=== PATIENT | male | born 1955 | race Caucasian/White ===

== ENCOUNTER 2017-02-19 08:16 | Outpatient (CLI) | payer BC ==
--- NOTE | 2017-02-19 10:30 | CT ---
CT CHEST WITH IV CONTRAST: CT ABDOMEN WITH IV AND ORAL CONTRAST: HISTORY: Renal cell carcinoma. Restaging. COMPARISON: 09/28/2016 FINDINGS: The peripheral, wedge-shaped, parenchymal opacity at the lateral aspect of the left upper lobe is un changed in appearance from the prior study. No focal parenchymal mass is evident. No pleural fluid or mediastinal adenopathy. 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 There is resultant narrowing of the lower trachea. A 0.3 cm calculus is present within a nondilated calyx at the superior pole of the left kidney. The right kidney is surgically absent. There are degenerative changes of the lumbar spine. No retrope ritoneal adenopathy is apparent. The pelvis was not imaged. IMPRESSION: 1. Stable CT appearance of the peripheral wedge-shaped infiltrate at the lateral aspect of the left upper lobe. No new lung abnormalities are apparent. 2. Small, nonobstructing left renal calculus. 3. Chronic type findings are stable. POS: [facility]
[2017-02-19] MEDS ORDERED: Iopamidol 370 76% 100 ML VIAL ONE ×2 (17:14→17:15)
== END 2017-02-19 08:17 | disposition home or self-care (01) ==
LOC: CT 08:16
PROVIDERS: ATTEND Internal Medicine Hematology & Oncology
DX: C64.1 Malignant neoplasm of right kidney, except renal pelvis (principal); R91.8 Other nonspecific abnormal finding of lung field; N20.0 Calculus of kidney
CPT/HCPCS: 36415; 71260; 74160; 82565

== ENCOUNTER 2017-02-26 07:50 | Outpatient (CLI) | payer BC ==
[2017-02-26 10:22] LABS: Hematocrit 50.4 % (42.0-52.0); Mean Platelet Volume 7.6 fL (7.4-10.4); Red Blood Cell (RBC) Count 4.58 mill/uL (4.70-6.10)
[2017-02-26 10:25] LABS: Reactive Lymphocytes 4 % (0-10)
[2017-02-26 10:26] LABS: Macrocytosis MODERATE=16-30 cells (100X) (0-5/hpf)
[2017-02-26 10:30] LABS: Anion Gap 15 mmol/L (10-20); BUN (Urea Nitrogen) 11 mg/dL (8.4-25.7); Calc. Creatinine Clearance 0 mL/min (70-130); Calcium 9.3 mg/dL (7.8-10.44); Carbon Dioxide 22 mmol/L (23-31); Chloride 103 mmol/L (98-107); Estimated GFR-MDRD 60
== END 2017-02-26 07:51 | disposition home or self-care (01) ==
LOC: LABBT 07:50
PROVIDERS: ATTEND Surgery
DX: Z01.818 Encounter for other preprocedural examination (principal); K60.3 Anal fistula
CPT/HCPCS: 80048; 85025; 93005; 93010

== ENCOUNTER 2017-05-15 07:13 | Outpatient (CLI) | payer BC ==
--- NOTE | 2017-05-15 09:40 | CT ---
CT OF THE CHEST WITH CONTRAST CT OF THE ABDOMEN WITH CONTRAST: Date: 05/15/17 COMPARISON: 02/19/17. HISTORY: Renal cell carcinoma with lung metastases. TECHNIQUE: 1. Multiple contiguous axial images were obtained in a CT of the chest with contrast. Coronal reform ats were performed. 2. Multiple contiguous axial images were obtained in a CT of the abdomen only with contrast. PO cont rast was administered. Coronal reformats were performed. FINDINGS: CT CHEST; There is a stable peripheral wedge-shaped area of opacity in the left upper lobe measuring 3.8 cm in width. There is a stable small area of nodularity projecting over the left upper lobe measuring less than 4.0 mm in size. This is seen on image 28 of 67. There is a tiny small area of nodularity just be neath the area of parenchymal opacification in the left upper lobe on image 28 of 67. This is less th an 4.0 mm in size and also stable. No new pulmonary nodules are seen. No pneumothorax or pleural effu sions seen. The heart is normal in size. No hilar or mediastinal lymphadenopathy seen. The patient has a right-si ded descending aortic arch. The left subclavian artery has both communication with the more anterior aorta in front of the trachea and there is also an extension from the descending thoracic aorta poste rior to the trachea. This is unchanged. Degenerative changes are seen in the spine. No suspicious osseous lesions are identified. The chest w all soft tissues are unremarkable. CT ABDOMEN: The patient is status post cholecystectomy and right nephrectomy. The liver, left adrenal gland, sple en, and pancreas are unremarkable. There is a tiny, nonobstructing, 1-2 mm, calcification in the left kidney. No abdominal adenopathy is seen. The large and small bowel are unremarkable. Degenerative changes are seen in the spine without suspicious osseous lesions identified. IMPRESSION: 1. Stable tiny upper lobe pulmonary nodules and area of peripheral opacity in the left upper lobe. 2. No evidence of recurrent intra-abdominal disease. 3. Nonobstructing left renal calcification. POS: [facility]
[2017-05-15] MEDS ORDERED: Iopamidol 370 76% 100 ML VIAL ONE (13:59)
== END 2017-05-15 07:14 | disposition home or self-care (01) ==
LOC: CT 07:13
PROVIDERS: ATTEND Internal Medicine Hematology & Oncology
DX: C64.1 Malignant neoplasm of right kidney, except renal pelvis (principal); N28.89 Other specified disorders of kidney and ureter
CPT/HCPCS: 71260; 74160

== ENCOUNTER 2017-06-05 09:33 | Outpatient (CLI) | payer BC ==
--- NOTE | 2017-06-05 14:26 | NM ---
NUCLEAR MEDICINE BONE SCAN: HISTORY: Malignant neoplasm unspecified kidney. COMPARISON: None. FINDINGS: Three-hour delayed bone scan performed after the intravenous administration of 32.4 mCi Technetium 99 m MDP. Normal background skeletal uptake of radiotracer. The left kidney and the urinary bladder is visuali zed. There are 2 focal faint areas of uptake in the posterior calvarium seen on the posterior view. No ot her areas of abnormal increased or decreased radiotracer uptake to suggest metastatic disease. IMPRESSION: Nonspecific 2 focal areas of uptake seen on the posterior view of the calvarium. This may represent calcified meningiomas. Metastatic disease is felt less likely. CT of the brain would be beneficial. POS: [facility]
== END 2017-06-05 09:34 | disposition home or self-care (01) ==
LOC: NM 09:33
PROVIDERS: ATTEND Family Medicine
DX: C78.00 Secondary malignant neoplasm of unspecified lung (principal); C64.9 Malignant neoplasm of unspecified kidney, except renal pelvis; D84.8 Other specified immunodeficiencies; R07.81 Pleurodynia; Z86.19 Personal history of other infectious and parasitic diseases; Z92.21 Personal history of antineoplastic chemotherapy
CPT/HCPCS: 78306; A9503

== ENCOUNTER 2017-09-12 07:30 | Outpatient (CLI) | payer BC ==
--- NOTE | 2017-09-12 10:41 | CT ---
CT CHEST WITH IV CONTRAST: CT ABDOMEN WITH IV AND ORAL CONTRAST: HISTORY: Malignant neoplasm of kidney (except pelvis). COMPARISON: 05/15/2017 FINDINGS: A right-sided aortic arch is again seen. There are vascular calcifications without evidence of aneur ysmal dilatation of the thoracoabdominal aorta. No pleural or pericardial effusions are identified. There are degenerative changes in the thoracolumbar spine. No osteolytic or osteoblastic lesions ar e identified. No evidence of mediastinal, hilar, or axillary mass or lymphadenopathy is seen. No ab dominal lymphadenopathy is noted. The peripheral wedge-shaped area of opacity in the left upper lobe is stable (3.8 cm). The 5 mm nodu le in the right upper lobe is stable. No new pulmonary nodules are seen. The liver, spleen, pancreas, and left adrenal gland are normal. A tiny, nonobstructing calculus in t he left kidney is again seen. No left renal mass is noted. The patient is status post right nephrec jean and cholecystectomy. The small bowel loops are not abnormally dilated. IMPRESSION: Stable exam since 05/15/2017. POS: [facility]
[2017-09-12] MEDS ORDERED: Iopamidol 370 76% 100 ML VIAL ONE (15:00)
== END 2017-09-12 07:31 | disposition home or self-care (01) ==
LOC: CT 07:30
PROVIDERS: ATTEND Internal Medicine Hematology & Oncology
DX: C64.1 Malignant neoplasm of right kidney, except renal pelvis (principal)
CPT/HCPCS: 71260; 74160; 82565

== ENCOUNTER 2018-01-23 07:29 | Outpatient (CLI) | payer BC ==
--- NOTE | 2018-01-23 10:27 | CT ---
CT CHEST WITH CONTRAST; CT ABDOMEN WITH CONTRAST: HISTORY: Renal cell cancer, status post nephrectomy. COMPARISON: 09/12/2017 TECHNIQUE: Multiple contiguous axial images were obtained in a CT of the chest with contrast. Coronal reformats were performed. Multiple contiguous axial images were obtained in a CT of the abdomen with contrast. Contrast was ad ministered p.o. Coronal reformats were performed. The pelvis was not included on this examination. FINDINGS: CHEST: There is a stable wedge shaped area of opacity in the left upper lobe, measuring approximatel y 3.6 cm in size. There is adjacent pleural thickening. The adjacent third and fourth ribs have an altered appearance, and there may be fractures of these ribs in this location. The third rib may hav e slightly had this appearance on the prior examination, but the fourth rib abnormality is new compar ed to the prior examination. There is a stable 5 to 6 mm nodule in the right upper lobe, on image 30 or 69. No new pulmonary nodu les are seen. No pneumothorax or pleural effusion is seen. The heart is normal in size. There is a right-sided aortic arch, which may also have a circumaortic component supplying the left subclavian artery. No hilar or mediastinal lymphadenopathy are present. The chest wall soft tissues are unremarkable. Degenerative changes are seen in the thoracic spine. ABDOMEN: The patient is status post cholecystectomy and right nephrectomy/adrenalectomy. The liver, left adrenal gland, spleen, and pancreas are unremarkable. There is a tiny, 2 mm, nonobstructing ca lcification in the left kidney. The visualized large and small bowel are unremarkable. No abdominal adenopathy is seen. Atheroscler otic calcifications are seen in the aorta. No free air, free fluid, or stranding changes are seen in the abdomen. Degenerative changes are seen in the lumbar spine. No suspicious lytic lesions are identified. The abdominal wall soft tissues are unremarkable. IMPRESSION: 1. There is a stable wedge shaped area of opacity in the left upper lobe. This is nonspecific. How ever, the ribs adjacent to this opacity have undergone changes compared to the prior examination. Th roe could represent rib fractures. Metastases to these ribs are also a possibility, although less li real, given the proximity to one another and the fact that no other lytic lesions are identified in t he skeleton. 2. Circumaortic aortic arch. 3. Nonobstructing left renal calcification. 4. No evidence of intraabdominal recurrent disease. POS: [facility]
[2018-01-23] MEDS ORDERED: Iopamidol 370 76% 100 ML VIAL ONE (14:06)
== END 2018-01-23 07:30 | disposition home or self-care (01) ==
LOC: CT 07:29
PROVIDERS: ATTEND Internal Medicine Hematology & Oncology
DX: C64.1 Malignant neoplasm of right kidney, except renal pelvis (principal); R19.8 Other specified symptoms and signs involving the digestive system and abdomen; N28.89 Other specified disorders of kidney and ureter
CPT/HCPCS: 71260; 74160; 82565

== ENCOUNTER 2018-05-16 07:30 | Outpatient (CLI) | payer BC ==
--- NOTE | 2018-05-16 10:27 | CT ---
CT CHEST WITH CONTRAST: CT ABDOMEN WITH CONTRAST: HISTORY: Renal cancer with lung metastases. Status post right nephrectomy. The patient is undergoing chemoth erapy. Imaging requested to assess for response to therapy. COMPARISON: 01/23/2018, 09/12/2017, 05/15/2017, 02/19/2017 TECHNIQUE: Chest and abdomen CT are performed in the axial plane. Coronal reformatted images are submitted for interpretation. FINDINGS: CHEST: Redemonstration of right-sided aortic arch. There is no mediastinal mass, lymphadenopathy, o r hematoma. Heart size is within normal limits. No pericardial effusion. The thoracic aorta and ab dominal aorta have a normal caliber. No periaortic fat stranding. Central pulmonary arteries are patent. Trachea and central bronchi are patent. Redemonstration of a 0.9 x 0.6 cm nodule in the right upper lobe. There is a pleural-based opacity in the left hemithorax, measuring 1.7 x 3.8 cm. Previously, this opacity measured 3.6 x 1.8 cm. This opacity is demonstrated and stable from exams from 09/13/19 18, 05/15/2017, and 02/19/2017. There is a 2 mm nodule in the posterior aspect of the left upper lob e. Additional areas of scarring are noted in the superior segment of the left lower lobe, adjacent t o the major fissure. There are adjacent rib fractures. No pneumothorax. ABDOMEN: There is heterogeneous attenuation of the liver, likely representing areas of fatty infiltr ation and fatty sparing. No enhancing masses in the liver. The spleen, pancreas, and left adrenal g land are unremarkable. No gastrohepatic, retrocrural, or periportal lymphadenopathy. No mesenteric mass, lymphadenopathy, free air, or free fluid. Symmetric attenuation of the psoas muscles. The stomach, duodenum, and small bowel loops are unremarkable. Previously noted mucosal thickening i n the segment of multiple jejunal loops has resolved. The ileocecal junction is normal. The visuali zed colon has a normal appearance. No lytic or blastic lesion in the osseous structures. IMPRESSION: 1. Redemonstration of lung parenchymal nodules. When compared to the previous examination, nodulari ty has not changed. Stable opacification, pleural-based, in the left hemithorax. 2. No evidence of new metastatic lesions in the chest or abdomen. POS: [facility]
== END 2018-05-16 07:31 | disposition home or self-care (01) ==
LOC: BICCT 07:30
PROVIDERS: ATTEND Internal Medicine Hematology & Oncology
DX: C64.9 Malignant neoplasm of unspecified kidney, except renal pelvis (principal); C78.00 Secondary malignant neoplasm of unspecified lung; R91.8 Other nonspecific abnormal finding of lung field
CPT/HCPCS: 71260; 74160; 82565

== ENCOUNTER 2018-09-25 07:25 | Outpatient (CLI) | payer BC ==
[2018-09-25] MEDS ORDERED: Iopamidol 370 76% 100 ML VIAL ONE (10:42)
--- NOTE | 2018-09-26 09:44 | CT ---
CT of the chest and abdomen with IV contrast INDICATION: History of renal cancer COMPARISON: Comparisons are made with a prior exam dated CT of the thorax dated May 16, [address] the chest and abdomen dated January 23, 2018. FINDINGS: CHEST: LUNGS: The pleural-based mass involving the lateral aspect of the left upper lobe has decreased in si ze now measuring 2.7 x 1.2 x 2.2 cm where previously the mass measured 3.8 x 1.7 x 2.6 cm. The adjacent pleural thickening and minimally displaced left anterolateral third and fourth rib fractures are stable. The pulmonary nodule within the right upper lobe has increased in size now measuring 11.8 x 8 x 10.9 mm. Previously this nodule measured 9.5 x 5.6 x 9.3 mm. There is an additional enlarg ing pulmonary nodule within the left lower lobe adjacent to the left infrahilar structures now measuring 11.7 x 8 mm where previously measured 7 mm x 11.6 mm. No new pulmonary nodule is identified . Mediastinum: No pathologically enlarged lymph node is evident. There is a right-sided aortic arch wit h an aberrant left subclavian artery. Vascular ring surrounding the distal mainstem trachea and esophagus is stable. ABDOMEN: Liver: Diffuse fatty infiltration is stable. The gallbladder is surgically absent. Adrenal glands: Normal left adrenal gland. The right adrenal gland is not visualized and presumably s urgically absent. Pancreas: Normal. Spleen: Normal. Kidneys: The right kidney is surgically absent. No suspicious soft tissue nodularity seen within the right renal bed. The left kidney is normal-appearing. There is a 2.4 mm nonobstructing calculus within the superior pole left kidney which is stable. Retroperitoneum: There are mild vascular calcifications involving all aorta. No pathologically enlarg ed lymph nodes are evident. Osseous structures: There are stable ununited left anterolateral third and fourth rib fractures with adjacent osteopenia suspicious for pathologic fractures. No new suspicious osteolytic or osteoblastic lesion is identified. IMPRESSION: 1. Findings a mixed response to therapy. The large pleural-based mass within the left upper lobe has decreased in size; however, the pulmonary nodules within the right upper lobe and left lower lobe have increased in size. No new pulmonary nodules are demonstrated. 2. Stable ununited left anterolateral third and fourth rib pathologic fractures 3. No evidence of recurrent disease within the abdomen nor evidence of abdominal regional metastatic disease. 4. Diffuse fatty liver Transcribed Date/Time: 09/26/2018 9:44 AM
== END 2018-09-25 07:26 | disposition home or self-care (01) ==
LOC: CT 07:25
PROVIDERS: ATTEND Internal Medicine Hematology & Oncology
DX: C64.9 Malignant neoplasm of unspecified kidney, except renal pelvis (principal); R91.8 Other nonspecific abnormal finding of lung field; K76.0 Fatty (change of) liver, not elsewhere classified; M84.48XK Pathological fracture, other site, subsequent encounter for fracture with nonunion
CPT/HCPCS: 71260; 74160; 82565; Q9967

== ENCOUNTER 2018-12-25 08:19 | Outpatient (CLI) | payer BC ==
--- NOTE | 2018-12-25 12:23 | CT ---
CT CHEST WITH IV CONTRAST CT ABDOMEN WITH IV CONTRAST: Date: 12/25/18 HISTORY: Malignant neoplasm kidney (except pelvis). Secondary polycythemia. Left upper lobe lung nodule. COMPARISON: 09/25/18. FINDINGS: No mediastinal, hilar, or axillary mass or lymphadenopathy seen. No pleural or pericardial effusions are identified. The right-sided aortic arch with an aberrant left subclavian artery is again seen wit h vascular ring surrounding the distal mainstem trachea and esophagus. The pleural based mass in the lateral aspect of the left upper lobe is stable, measuring 2.7 x 1.2 x 2.2 cm. The 12 mm right upper lobe lung nodule and the 8 mm left lower lobe lung nodule are stable. N o new lung nodules are seen. Changes of fatty infiltration of the liver, cholecystectomy, and right nephrectomy are again seen. Th e spleen, pancreas, left adrenal gland, and left kidney are normal. The right adrenal gland is not vi sualized and likely surgically removed. No free air, free fluid, or lymphadenopathy seen in the abdomen. There are degenerative changes in the spine. No osteolytic or osteoblastic lesions are identified. Ti ny calculus in the left kidney is stable. IMPRESSION: Stable exam. POS: [facility]
== END 2018-12-25 08:20 | disposition home or self-care (01) ==
LOC: BICCT 08:19
PROVIDERS: ATTEND Internal Medicine Hematology & Oncology
DX: C64.1 Malignant neoplasm of right kidney, except renal pelvis (principal); R91.1 Solitary pulmonary nodule; D75.1 Secondary polycythemia
CPT/HCPCS: 71260; 74160; 82565

== ENCOUNTER 2019-03-26 08:40 | Emergency (ER) | payer BC ==
[2019-03-26] MEDS ORDERED: Lidocaine 1% (PF) 30 ML VIAL ONE (08:51)
--- NOTE | 2019-03-26 09:28 | RAD ---
XR Hand Lt 3 View STANDARD History: Pain Comparison: None. Findings: No acute fracture or malalignment. Soft tissues are unremarkable. Impression: No acute fracture or malalignment.
== END 2019-03-26 10:41 | disposition home or self-care (01) ==
LOC: ERS 08:40
DX: S61.012A Laceration without foreign body of left thumb without damage to nail, initial encounter (principal); S60.413A Abrasion of left middle finger, initial encounter; I10 Essential (primary) hypertension; Z79.899 Other long term (current) drug therapy; Z79.82 Long term (current) use of aspirin; W23.0XXA Caught, crushed, jammed, or pinched between moving objects, initial encounter
CPT/HCPCS: J2001

== ENCOUNTER 2019-05-01 07:00 | Outpatient (CLI) | payer BC ==
--- NOTE | 2019-05-01 08:22 | CT ---
CT BRAIN WITH AND WITHOUT CONTRAST: HISTORY: A 64-year-old male with metastatic renal cell carcinoma who presents with right lower extremity weakn ess. TECHNIQUE: Precontrast scan of brain IV injection iodinated contrast media: 60 mL Isovue 370. Postcontrast scan of brain FINDINGS: The ventricles are normal in size and configuration. There is no midline shift or any other mass eff ect. There is no evidence of acute intracranial hemorrhage, large cortical infarct, or extraaxial fl uid collection. The lizama matter /white matter differentiation is maintained. There is no abnormal e nhancement or mass. The calvarium is intact. The tympanomastoid cavities, and the upper portions of the paranasal sinuses included in these images, are grossly clear. IMPRESSION: Normal. jn [] POS: [facility]
--- NOTE | 2019-05-01 09:28 | CT ---
CT CHEST WITH IV CONTRAST CT ABDOMEN WITH IV CONTRAST CT PELVIS WITH IV CONTRAST: HISTORY: Malignant neoplasm of kidney (except pelvis). Secondary polycythemia. COMPARISON: 12/25/2018. FINDINGS: The right-sided aortic arch with an aberrant left subclavian artery is again seen with vascular rings surrounding the distal mainstem trachea and esophagus. No mediastinal, hilar, or axillary mass or l ymphadenopathy is seen. The pleural-based mass in the lateral aspect of the left upper lobe is stable measuring 2.7 x 1.2 cm with adjacent pleural thickening and minimally displaced left anterolateral 3rd and 4th rib fractures . The 12 mm right upper lobe lung nodule has increased in size measuring 16 mm on the current study. The 8 mm left lower lobe nodule is stable. There is a 6 mm low-density lesion in the inferomedial aspect of the right lobe of the liver which ma y have been present on the study, but is better visualized on the current exam. Changes of cholecyst ectomy and right nephrectomy are again seen. The right adrenal gland is not visualized and was likel y subsequently removed. The spleen, pancreas, and left adrenal gland are normal. There is a tiny no nobstructing left renal calculus. No left renal mass is noted. No free air or free fluid is seen in the abdomen or pelvis. A few subcentimeter left periaortic lymp h nodes are stable. The small bowel loops are not abnormally dilated. The prostate is enlarged. Th ere are degenerative changes in the spine. No osteolytic or osteoblastic lesions are identified. Th ere are vascular calcifications without evidence of aneurysmal dilatation of the thoracoabdominal aor ta. IMPRESSION: Interval increase in size of the right upper lobe nodule since 12/25/2018. The remainder of the exam i s otherwise stable. POS: [facility]
== END 2019-05-01 07:01 | disposition home or self-care (01) ==
LOC: CT 07:00
PROVIDERS: ATTEND Internal Medicine Hematology & Oncology
DX: C64.1 Malignant neoplasm of right kidney, except renal pelvis (principal); C78.00 Secondary malignant neoplasm of unspecified lung; R91.1 Solitary pulmonary nodule
CPT/HCPCS: 70470; 71260; 74177

== ENCOUNTER 2019-05-08 08:44 | Outpatient (CLI) | payer BC ==
--- NOTE | 2019-05-08 12:16 | MRI ---
MRI LUMBAR SPINE WITH AND WITHOUT CONTRAST: DATE: 05/08/2019 HISTORY: 64-year-old male with ICD-10: "C64.1 malignant neoplasm of kidney except pelvis, M 54.5 low back pain , and R 53.1 right-sided leg weakness" COMPARISON: none TECHNIQUE: Multiple sequences obtained in axial and sagittal planes, pre and post IV injection of gadolinium-bas ed contrast agent. FINDINGS: Vertebral body heights are maintained. Alignment is normal. Bone marrow signal is normal. Cauda equin a is arranged in a symmetrical, normal distribution throughout the thecal sac. Conus medullaris terminates at lower T12 level. There is no abnormal enhancement or mass involving the extra medullary -intradural, extradural, intraosseous, or perivertebral, spaces. There is no significant central spinal canal stenosis at any level. No nerve root impingement at any level. Very mild disc space narr owing at L5-S1. The rest of the disc spaces are maintained. At L4-5, tiny midline anterior epidural structure indenting the thecal sac extending down to the lower L5 level. At L5-S1 there is a small ce ntral focal disc herniation which does not impinge on or displace the bilateral S1 nerve roots. IMPRESSION: 1. No evidence of metastatic disease involving the lumbar spine. 2. No central stenosis, high-grade neural foraminal stenosis, or nerve root impingement at any level. No explanation for the patient's right lower extremity weakness.
== END 2019-05-08 08:45 | disposition home or self-care (01) ==
LOC: MRI 08:44
PROVIDERS: ATTEND Internal Medicine Hematology & Oncology
DX: C64.1 Malignant neoplasm of right kidney, except renal pelvis (principal); M54.5 Low back pain; R53.1 Weakness
CPT/HCPCS: 72158

== ENCOUNTER 2019-05-19 10:27 | Outpatient (CLI) | payer BC ==
--- NOTE | 2019-05-19 15:17 | NM ---
WHOLE BODY BONE SCAN: HISTORY: Malignant neoplasm of right kidney. extrarenal pelvis. COMPARISON: 06/05/2017 CORRELATION: CT brain, chest, abdomen, and pelvis from 05/01/2019. RADIOPHARMACEUTICAL: Technetium 99m MDP 30 millicuries injected intravenously. FINDINGS: A couple of faint foci of mildly increased uptake in the calvarium are again seen without an anatomic correlate on the CT scan. Increased uptake in the shoulders, sternoclavicular joints and knees consistent with degenerative sena nges. There is increased uptake in the right hip, which appears new since the last exam. No other abn ormal areas of tracer localization are seen. The patient is post right nephrectomy. Tracer excretion to the left kidney is normal. IMPRESSION: New focus of increased uptake in the right hip. Further evaluation with right hip MRI is recommended. POS: [facility]
== END 2019-05-19 10:28 | disposition home or self-care (01) ==
LOC: NM 10:27
PROVIDERS: ATTEND Internal Medicine Hematology & Oncology
DX: C64.1 Malignant neoplasm of right kidney, except renal pelvis (principal); M54.5 Low back pain; R53.1 Weakness
CPT/HCPCS: 78306; A9503

== ENCOUNTER 2019-05-29 07:47 | Outpatient (CLI) | payer BC ==
--- NOTE | 2019-05-29 09:21 | MRI ---
MR the right hip with and without IV contrast INDICATION: History of malignant neoplasm of the kidneys with an abnormality seen within the right ibarra lf on a recent bone scan TECHNIQUE: Multiplanar multisequence MR images were obtained of the pelvis and right hip with and wit hout contrast utilizing 15 cc MultiHance. Comparisons are made with a prior CT the chest abdomen and pelvis dated 05/01/2019 and whole body bone scan dated May 19, 2019. FINDINGS: There are changes of osteonecrosis involving both femoral heads with an area of subchondral collapse involving the anterior superior aspect of the right femoral head. The subchondral collapse is new from the comparison CT dated May 01, 2019. The region of osteonecrosis involving the anterior vergara perior right femoral head measures approximately 3.2 cm. The region of osteonecrosis involving anterosuperior left femoral head measures 2.3 cm without evidence of subchondral collapse. There is a very mild right-sided joint effusion. There is subchondral edema involving the right femoral head and neck region. The activity seen on the comparison bone scan is likely related to the remodeling an d subchondral collapse present within the right femoral head. No additional bone marrow signal abnormality is evident. There is no overt evidence to suggest presence of metastatic disease. No abno rmal enhancement is demonstrated. IMPRESSION: 1. 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 There is edema present involving the right femoral head and neck region. The activity seen on the recent bone scan is likely related to the subchondral collapse ongoing within the right femora l head. Radiographic evaluation is recommended. 2. No evidence to suggest osseous metastatic disease of the pelvis.
[2019-05-29] MEDS ORDERED: Magnevist 469MG/ML 20 ML VIAL ONE (14:15)
== END 2019-05-29 07:48 | disposition home or self-care (01) ==
LOC: BICMRI 07:47
PROVIDERS: ATTEND Internal Medicine Hematology & Oncology
DX: C64.9 Malignant neoplasm of unspecified kidney, except renal pelvis (principal); R93.7 Abnormal findings on diagnostic imaging of other parts of musculoskeletal system; M25.559 Pain in unspecified hip; M87.851 Other osteonecrosis, right femur; M87.852 Other osteonecrosis, left femur; R60.0 Localized edema
CPT/HCPCS: 82565; A9579

== ENCOUNTER 2019-06-05 06:53 | Outpatient (CLI) | payer BC ==
[2019-06-05 14:49] LABS: INR-International Normal Ratio 0.9; Prothrombin Time 12.4 SEC (12.0-14.7)
[2019-06-05 15:02] LABS: Anion Gap 14 mmol/L (10-20); BUN (Urea Nitrogen) 11 mg/dL (8.4-25.7); Calc. Creatinine Clearance 0 mL/min (70-130); Calcium 9.2 mg/dL (7.8-10.44); Carbon Dioxide 25 mmol/L (23-31); Chloride 103 mmol/L (98-107); Estimated GFR-MDRD 59; Glucose 74 mg/dL (80-115); Potassium 3.9 mmol/L (3.5-5.1); Sodium 138 mmol/L (136-145)
[2019-06-05 15:29] LABS: Band 4 % (5-11); Eosinophils 1 % (0-10); Hemoglobin 16.9 g/dL (14.0-18.0); Lymphocytes 43 % (21-51); MDiff Complete? YES; Macrocytosis MODERATE=16-30 cells (100X) (0-5/hpf); Mean Corpuscular HGB CONC 34.3 g/dL (32.0-36.0); Mean Corpuscular Hemoglobin 39.1 pg (27.0-31.0); Mean Platelet Volume 8.1 fL (7.4-10.4); Monocytes 7 % (0-10); Neutrophil 28 % (42-75); Platelet Count 166 thou/uL (130-400); Platelet Morphology Comment Appears Adequate; Polychromasia SLIGHT = 2-3 cells (100X) (0-2/hpf); RBC Distribution Width 12.8 % (11.5-14.5); Reactive Lymphocytes 17 % (0-10); Red Blood Cell (RBC) Count 4.31 mill/uL (4.70-6.10); White Blood Cell (WBC) Count 3.1 thou/uL (4.8-10.8)
== END 2019-06-05 06:54 | disposition home or self-care (01) ==
LOC: LABBT 06:53
PROVIDERS: ATTEND Orthopaedic Surgery
DX: Z01.812 Encounter for preprocedural laboratory examination (principal); M16.11 Unilateral primary osteoarthritis, right hip; M87.051 Idiopathic aseptic necrosis of right femur
CPT/HCPCS: 80048; 85025; 85610; 87081

== ENCOUNTER 2019-06-05 13:15 | Inpatient (IN) | payer BC ==
[2019-06-10] MEDS ORDERED: Vancomycin 1.5 GRAM/300 ML BAG 1.5 GM/300 ML BAG ONE (05:55)
[2019-06-10] MEDS ORDERED: Tranexamic Acid 1,000 MG/10 ML VIAL ONE (05:55)
[2019-06-10] MEDS ORDERED: Sodium Chloride 0.9% 100 ML ONE (05:55)
[2019-06-10] MEDS ORDERED: Gentamicin Sulfate 120 MG in Premix Bag 1 BAG IVPB SCH (06:15)
[2019-06-10] MEDS ORDERED: Midazolam HCl 2 mg/2 ml Vial ONE (06:27)
[2019-06-10] MEDS ORDERED: Fentanyl 100 MCG/2 ML VIAL ONE ×3 (06:27→09:13)
[2019-06-10] MEDS ORDERED: Fentanyl 100 MCG/2 ML VIAL SLOW IVP PRN ×2 (06:58)
[2019-06-10] MEDS ORDERED: Zolpidem Tartrate 5 MG TAB PO PRN ×2 (06:58→07:30)
[2019-06-10] MEDS ORDERED: Promethazine HCl 25 MG/ML VIAL IM PRN ×3 (06:58→08:03)
[2019-06-10] MEDS ORDERED: HYDROcodone/Acetaminophen 10/325 mg Tablet PO PRN ×2 (06:58)
[2019-06-10] MEDS ORDERED: diphenhydrAMINE 25 MG CAP PO PRN (06:58)
[2019-06-10] MEDS ORDERED: Acetaminophen 325 MG TAB PO PRN (06:58)
[2019-06-10] MEDS ORDERED: Ondansetron PF 4 MG/2 ML Vial IVP PRN (06:58)
[2019-06-10] MEDS ORDERED: Ropivacaine 0.2% HCl/PF 20 ML ONE (07:15)
[2019-06-10] MEDS ORDERED: Acetaminophen 500 MG TAB PO PRN (07:27)
[2019-06-10] MEDS ORDERED: Naloxone HCl 0.4 mg/ml Vial IVP PRN (07:30)
[2019-06-10] MEDS ORDERED: Bupivacaine 0.25% 10 ML VIAL EPIDURAL PRN (07:30)
[2019-06-10] MEDS ORDERED: diphenhydrAMINE 50 MG/ML VIAL IM PRN (07:30)
[2019-06-10] MEDS ORDERED: HYDROcodone/Acetaminophen 5/325 mg Tablet PO PRN (07:30)
[2019-06-10] MEDS ORDERED: Promethazine HCl 25 MG SUPP PR PRN (07:30)
[2019-06-10] MEDS ORDERED: fentaNYL Citrate/PF 500 MCG, Bupivacaine 10 ML in Sodium Chloride 0.9% 80 ML EPIDURAL SCH (07:30)
[2019-06-10] MEDS ORDERED: Hydrocerin (Eucerin) Cream 120 gm Jar TOP PRN (07:30)
[2019-06-10] MEDS ORDERED: Naloxone HCl 0.4 mg/ml Vial IV PRN (07:30)
[2019-06-10] MEDS ORDERED: Gentamicin Sulfate 80 MG in Premix Bag 1 BAG IVPB SCH (08:00)
[2019-06-10] MEDS ORDERED: Promethazine HCl 25 MG/ML VIAL SLOW IVP PRN (08:03)
[2019-06-10] MEDS ORDERED: Ondansetron HCl/PF 4 MG/2 ML Vial IVP PRN (08:03)
[2019-06-10] MEDS ORDERED: Aspirin 325 MG TAB PO SCH (09:00)
--- NOTE | 2019-06-10 09:27 | OP ---
DATE OF PROCEDURE: 06/10/2019 This is Dylan Kovacs PA-C dictating a report for Alban Moody MD. 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 PROCEDURE PERFORMED: Press-fit right total hip arthroplasty. ELECTRICAL APPLIANCE REPAIRER: Dylan Kovacs PA-C ANESTHESIA: General via endotracheal tube augmented with indwelling epidural. COMPONENTS USED: [employer] Accolade II size 7 press-fit hip stem with a 56 mm Tritanium press-fit hemispherical acetabular shell, 10-degree polyethylene fixed-bearing insert, and a Biolox 36 mm -5 neck length ceramic femoral head. ESTIMATED BLOOD LOSS: 200. FINDINGS: Mild bicompartmental degenerative osteoarthritis of the right hip, but subchondral bone softening consistent with avascular necrosis. DRAINS: None. SPECIMENS: None. COMPLICATIONS: None. COUNTS: Correct. INDICATIONS FOR SURGERY: Otilio is a 64-year-old white male who has had changes in his femoral neck consistent with avascular necrosis. He has elected to proceed with right total hip arthroplasty as definitive treatment of his pain, implied with standing and walking. PROCEDURE IN DETAIL: After informed consent was obtained in the preoperative holding area, the patient was taken to the operative suite where general anesthesia was induced. The patient was then positioned in the lateral decubitus position. The hip was then prepped and draped in usual sterile fashion. The patient received preoperative antibiotics. Prior to incision, time-out was called and all members of the surgical team agreed upon site, surgeon, and patient. After this, a longitudinal incision was made directly over the trochanter, noted by palpation extending 2 fingerbreadths above and below the trochanter. The deeper subcutaneous layer was undermined with Bovie electrocautery. The iliotibial band was encountered and incised sharply and the plane below this was developed bluntly. A Charnley retractor was placed to hold this opened. The lateral aspect of the trochanter and the abductor muscles were encountered and then reflected anteriorly off the trochanter using Bovie electrocautery. Once this was completed, the anterior capsule was then encountered and identified and copious capsulotomy was carried out, exposing the femoral neck and head. Dislocation maneuver was then performed and an in situ provisional neck cut was then made using the oscillating saw. Attention was then turned to acetabular preparation. Sequential reaming was carried out up to the appropriate diameter and a trial was then malleted into place with good firm resistance and no pullout. The permanent acetabular shell was then malleted squarely into place, as was the appropriate liner. Once completed, the wound was copiously irrigated and attention was then turned to femoral preparation. Flexion and external rotation were performed of the exposed thigh and femoral elevators were then placed at the proximal aspect of the wound. Canal finder was used to establish the length of the canal and sequential reaming was carried out, followed by broaching. Once the appropriate stability was established with the trial broaches with flexion, extension and rotational stability, we did trial with neutral and 2 mm offset incremental necks. Once the appropriate size was decided upon, with good stability noted with flexion, extension, internal and external rotation and shuck being negative, we removed the femoral trial broach and malletted into place the permanent prosthesis with good firm fit, which was also stable to rotation. Again, the hip felt very stable to flexion, extension, internal and external rotation. Leg lengths appeared near anatomic clinically and we were quite happy with prosthesis placement. Copious irrigation was then carried out through the entirety of the wound. Primary closure of the abductors was accomplished with interrupted #2 Vicryl [id number]-sugit stitches and the IT band was then closed with interrupted #2 Vicryl, oversewn with a #2 running barbed Quill stitch. Subcutaneous fascia was closed with running barbed Quill stitch and a subcuticular Monocryl barbed Quill stitch was used for skin closure and augmented with skin cement. A sterile dressing was applied. The procedure was terminated without any complication. All counts were correct. The patient was awakened in the operative suite and taken to the recovery room in stable condition. Job ID: [id number]
--- NOTE | 2019-06-10 09:34 | RAD ---
EXAM: 2 views of the right hip HISTORY: Status post right hip arthroplasty COMPARISON: None FINDINGS: 2 views of the right hip shows no evidence of acute fracture or dislocation. The patient is status post right hip arthroplasty without perihardware lucency or fracture. Air in the soft tissues is from recent surgery. IMPRESSION: Status post right hip arthroplasty without evidence of complication.
[2019-06-10] MEDS ORDERED: Scopolamine 1.5 mg/72 hour Patch ONE (10:09)
[2019-06-10] MEDS: diphenhydrAMINE 50 MG/ML VIAL IVP PRN ×2 (10:54→14:17)
[2019-06-10] MEDS: Sodium Chloride 0.9% 1,000 ML IV SCH ×3 (11:02→22:06)
[2019-06-10] MEDS: Ferrous Gluconate 324 MG TAB PO SCH ×2 (11:05→20:34)
[2019-06-10] MEDS: Senokot S 8.6-50 MG TAB PO SCH ×2 (11:05→20:34)
[2019-06-10] MEDS: Aspirin 81 mg Enteric Coated Tablet PO SCH ×2 (11:05→20:33)
[2019-06-10] MEDS: Multivitamin W/ Minerals 1 TAB PO SCH (11:05)
[2019-06-10] MEDS: Amlodipine 5 MG TAB PO SCH (11:10)
[2019-06-10] MEDS: Rosuvastatin 10 MG TAB PO SCH (11:10)
[2019-06-10 11:13] VITALS: BMI 30.2
[2019-06-10] MEDS ORDERED: Lidocaine 1% PF 5 ML VIAL ONE (11:39)
[2019-06-10] MEDS ORDERED: PROPOFOL 200 MG/20 ML VIAL ONE (11:39)
[2019-06-10] MEDS ORDERED: Ondansetron PF 4 MG/2 ML Vial ONE (11:39)
[2019-06-10] MEDS ORDERED: Glycopyrrolate 0.2 MG/ML 5 ML SYRINGE ONE (11:39)
[2019-06-10] MEDS ORDERED: Rocuronium Bromide 10 MG/ML (10ML VIAL) ONE (11:39)
[2019-06-10] MEDS ORDERED: Lidocaine 1.5% w/Epi 1:200K 30 ML VIAL (Epid Use) ONE (11:39)
[2019-06-10] MEDS ORDERED: PHENYLEPHRINE-NS 100 MCG/ML 10 ML SYRINGE ONE (11:39)
--- NOTE | 2019-06-10 13:32 | PDOC.HOSPP ---
- Subjective Encounter Date: 06/10/19 Encounter Time: 11:45 Subjective: is waking up post op no sob or palp at bedside - Objective Vital Signs & Weight: Vital Signs (12 hours) Temp Pulse Resp BP Pulse Ox 06/10/19 11:00 98 06/10/19 10:35 97.0 F L 60 18 113/75 98 Weight Weight 205 lb Hospitalist ROS - Medication Medications: Active Medications Generic Name Dose Route Start Last Admin Trade Name Freq PRN Reason Stop Dose Admin Amlodipine Besylate 5 mg 06/10/19 09:00 06/10/19 11:10 Norvasc PO Not Given DAILY CORDELIA Aspirin 81 mg 06/10/19 09:00 06/10/19 11:05 Ecotrin PO Not Given BID CORDELIA Diphenhydramine HCl 25 mg 06/10/19 07:30 06/10/19 10:54 Benadryl IVP 25 mg Q3H PRN Administration Itching Ferrous Gluconate 324 mg 06/10/19 09:00 06/10/19 11:05 Fergon PO Not Given BID [facility] Sodium Chloride 1,000 mls @ 100 mls/hr 06/10/19 07:00 06/10/19 11:02 Normal Saline 0.9% IV Not Given .Q10H CORDELIA Iron/Minerals/Multivitamins 1 tab 06/10/19 09:00 06/10/19 11:05 Theragran M PO Not Given DAILY CORDELIA Rosuvastatin Calcium 10 mg 06/10/19 09:00 06/10/19 11:10 Crestor PO Not Given DAILY CORDELIA Senna/Docusate Sodium 2 tab 06/10/19 09:00 06/10/19 11:05 Senokot S PO Not Given BID CORDELIA - Exam Eye: PERRL, anicteric sclera ENT: no oropharyngeal lesions, dry oral mucosa Neck: supple, no JVD Heart: RRR, no murmur, no gallops Respiratory: no wheezes, no rales Gastrointestinal: soft, non-tender, non-distended, normal bowel sounds Extremities: no cyanosis, no edema Extremities - other findings: right hip in dressing/ice pack, has epidural+ Neurological: cranial nerve grossly intact, no focal deficits Hosp A/P (1) Status post total hip replacement, right Code(s): Z96.641 - PRESENCE OF RIGHT ARTIFICIAL HIP JOINT Status: Acute (2) HTN (hypertension) Code(s): I10 - ESSENTIAL (PRIMARY) HYPERTENSION Status: Chronic Qualifiers: Hypertension type: essential hypertension Qualified Code(s): I10 - Essential (primary) hypertension (3) History of nephrectomy Code(s): Z90.5 - ACQUIRED ABSENCE OF KIDNEY Status: Chronic Plan: right (4) Hyperlipidemia Code(s): E78.5 - HYPERLIPIDEMIA, UNSPECIFIED Status: Chronic Qualifiers: Hyperlipidemia type: unspecified Qualified Code(s): E78.5 - Hyperlipidemia , unspecified (5) Renal cell carcinoma Code(s): C64.9 - MALIGNANT NEOPLASM OF UNSP KIDNEY, EXCEPT RENAL PELVIS Status : Chronic Qualifiers: Laterality: right Qualified Code(s): C64.1 - Malignant neoplasm of right kidney, except renal pelvis - Plan is slowly waking up post op, not in distress. no c/o pain, right leg is still numb continue asp bid, bystolic, norvasc, crestor and protonix fentanyl epidural, norco prn, benadryl prn itching hemostable He f/u with and is on sunitinib for renal cell ca (10on 7off cycle) will f/u, labs in am
[2019-06-10] MEDS: Gentamicin Sulfate 80 MG in Premix Bag 1 BAG IVPB SCH ×2 (14:17→22:06)
[2019-06-10] MEDS: Bupivacaine 10 ML in Sodium Chloride 0.9% 90 ML EPIDURAL SCH (19:02)
[2019-06-10] MEDS: Nebivolol HCl 5 MG TAB PO SCH (20:33)
[2019-06-10] MEDS: diphenhydrAMINE 25 MG CAP PO PRN (20:33)
[2019-06-10] MEDS: HYDROcodone/Acetaminophen 5/325 mg Tablet PO PRN (23:19)
[2019-06-10] MEDS: Ondansetron PF 4 MG/2 ML Vial IVP PRN (23:40)
[2019-06-11] MEDS ORDERED: Bupivacaine 10 ML in Sodium Chloride 0.9% 90 ML EPIDURAL SCH (00:15)
[2019-06-11] MEDS ORDERED: Ketorolac Tromethamine 30 MG/ML VIAL IVP SCH (01:15)
[2019-06-11] MEDS ORDERED: Simethicone Chewable 80 MG TAB PO PRN (01:16)
[2019-06-11] MEDS: Fentanyl 100 MCG/2 ML VIAL SLOW IVP PRN ×2 (01:20→06:54)
[2019-06-11] MEDS: diphenhydrAMINE 25 MG CAP PO PRN (01:21)
[2019-06-11 05:39] LABS: Hemoglobin 15.3 g/dL (14.0-18.0); Mean Corpuscular HGB CONC 33.4 g/dL (32.0-36.0); Mean Corpuscular Hemoglobin 38.4 pg (27.0-31.0); Mean Platelet Volume 7.8 fL (7.4-10.4); Platelet Count 176 thou/uL (130-400); RBC Distribution Width 12.8 % (11.5-14.5); Red Blood Cell (RBC) Count 3.98 mill/uL (4.70-6.10); White Blood Cell (WBC) Count 5.2 thou/uL (4.8-10.8)
[2019-06-11 05:56] LABS: ALT (SGPT) 20 U/L (8-55); AST (SGOT) 30 U/L (5-34); Albumin 3.7 g/dL (3.4-4.8); Alkaline Phosphatase 61 U/L (40-110); Anion Gap 13 mmol/L (10-20); BUN (Urea Nitrogen) 15 mg/dL (8.4-25.7); Bilirubin, Total 0.6 mg/dL (0.2-1.2); Calc. Creatinine Clearance 78 mL/min (70-130); Calcium 8.6 mg/dL (7.8-10.44); Carbon Dioxide 25 mmol/L (23-31); Chloride 102 mmol/L (98-107); Estimated GFR-MDRD 57; Globulin 2.4 g/dL (2.4-3.5); Glucose 135 mg/dL (80-115); Potassium 4.6 mmol/L (3.5-5.1); Protein, Total 6.1 g/dL (5.8-8.1); Sodium 135 mmol/L (136-145)
[2019-06-11] MEDS: HYDROcodone/Acetaminophen 5/325 mg Tablet PO PRN (06:45)
[2019-06-11] MEDS: Gentamicin Sulfate 80 MG in Premix Bag 1 BAG IVPB SCH (06:46)
[2019-06-11] MEDS: Bupivacaine 10 ML in Sodium Chloride 0.9% 90 ML EPIDURAL SCH (07:30)
[2019-06-11] MEDS: Rosuvastatin 10 MG TAB PO SCH (08:41)
[2019-06-11] MEDS: Senokot S 8.6-50 MG TAB PO SCH ×2 (08:41→20:45)
[2019-06-11] MEDS: Aspirin 81 mg Enteric Coated Tablet PO SCH ×2 (08:41→20:46)
[2019-06-11] MEDS: Ferrous Gluconate 324 MG TAB PO SCH ×2 (08:41→20:46)
[2019-06-11] MEDS: Multivitamin W/ Minerals 1 TAB PO SCH (08:42)
--- NOTE | 2019-06-11 09:03 | RAD ---
SUPINE ABDOMEN: HISTORY: Abdominal distention. FINDINGS: Scattered stool and gas throughout colon. There is some scattered small bowel gas, which appears nons pecific. No evidence of small bowel dilatation or obstruction. No mass effect or abnormal calcificati on. Post cholecystectomy clips are noted. Coiled catheter overlies the left abdomen. IMPRESSION: Unremarkable bowel gas pattern. POS: [facility]
[2019-06-11] MEDS: HYDROcodone/Acetaminophen 10/325 mg Tablet PO PRN ×2 (10:31→18:55)
--- NOTE | 2019-06-11 12:07 | PDOC.HOSPP ---
- Subjective Encounter Date: 06/11/19 Encounter Time: 09:00 Subjective: is sitting in chair, feels better now was nauseous overnight no sob or abd pain - Objective Vital Signs & Weight: Vital Signs (12 hours) Temp Pulse Resp BP Pulse Ox 06/11/19 08:41 93 L 06/11/19 07:14 98.6 F 78 16 108/62 93 L 06/11/19 04:00 86 16 137/77 97 Weight Weight 205 lb I&O: 06/10/19 06/11/19 06/12/19 06:59 06:59 06:59 Intake Total 1500 1120 Output Total 425 800 Balance 1075 320 Result Diagrams: 06/11/19 05:18 06/11/19 05:18 Hospitalist ROS - Medication Medications: Active Medications Generic Name Dose Route Start Last Admin Trade Name Freq PRN Reason Stop Dose Admin Hydrocodone Bitart/Acetaminophen 2 tab 06/11/19 08:14 06/11/19 10:31 [place] 10/325 PO 2 tab Q4H PRN Administration Moderate to Severe Pain (6-10) Amlodipine Besylate 5 mg 06/10/19 09:00 06/10/19 11:10 Norvasc PO Not Given DAILY CORDELIA Aspirin 81 mg 06/10/19 09:00 06/11/19 08:41 Ecotrin PO 81 mg BID CORDELIA Administration Diphenhydramine HCl 25 mg 06/10/19 07:30 06/10/19 14:17 Benadryl IVP 25 mg Q3H PRN Administration Itching Emollient Cream 0 gm 06/10/19 07:30 06/10/19 21:51 Hydrocerin Cream TOP 1 applic PRN PRN Administration Itching Fentanyl 50 mcg 06/11/19 01:10 06/11/19 06:54 Sublimaze SLOW IVP 50 mcg Q1H PRN Administration Breakthrough Pain Ferrous Gluconate 324 mg 06/10/19 09:00 06/11/19 08:41 Fergon PO 324 mg BID CORDELIA Administration Sodium Chloride 1,000 mls @ 100 mls/hr 06/10/19 07:00 06/10/19 22:06 Normal Saline 0.9% IV 1,000 mls .Q10H CORDELIA Administration Bupivacaine HCl 10 ml/ Sodium 100 mls @ 8 mls/hr 06/10/19 18:00 06/11/19 07: 30 Chloride EPIDURAL 100 mls INF CORDELIA Administration Iron/Minerals/Multivitamins 1 tab 06/10/19 09:00 06/11/19 08:42 Theragran M PO 1 tab DAILY CORDELIA Administration Nebivolol 5 mg 06/10/19 21:00 06/10/19 20:33 Bystolic PO 5 mg HS CORDELIA Administration Ondansetron HCl 4 mg 06/10/19 07:30 06/10/19 23:40 Zofran IVP 4 mg Q6H PRN Administration Nausea/Vomiting Pantoprazole Sodium 40 mg 06/10/19 21:00 06/10/19 20:33 Protonix PO 40 mg HS CORDELIA Administration Promethazine HCl 12.5 mg 06/10/19 07:30 06/11/19 00:09 Phenergan IM 12.5 mg Q4H PRN Administration Nausea Rosuvastatin Calcium 10 mg 06/10/19 09:00 06/11/19 08:41 Crestor PO 10 mg DAILY CORDELIA Administration Senna/Docusate Sodium 2 tab 06/10/19 09:00 06/11/19 08:41 Senokot S PO 2 tab BID CORDELIA Administration - Exam General Appearance: awake alert Eye: PERRL, anicteric sclera ENT: no oropharyngeal lesions, moist mucosa Neck: supple, no JVD Heart: RRR, no murmur Respiratory: no wheezes, no rales Gastrointestinal: soft, non-tender, non-distended, normal bowel sounds Extremities: no cyanosis, no edema Neurological: cranial nerve grossly intact, no focal deficits Psychiatric: normal affect, A&O x 3 Hosp A/P (1) Status post total hip replacement, right Code(s): Z96.641 - PRESENCE OF RIGHT ARTIFICIAL HIP JOINT Status: Acute (2) HTN (hypertension) Code(s): I10 - ESSENTIAL (PRIMARY) HYPERTENSION Status: Chronic Qualifiers: Hypertension type: essential hypertension Qualified Code(s): I10 - Essential (primary) hypertension (3) History of nephrectomy Code(s): Z90.5 - ACQUIRED ABSENCE OF KIDNEY Status: Chronic (4) Hyperlipidemia Code(s): E78.5 - HYPERLIPIDEMIA, UNSPECIFIED Status: Chronic Qualifiers: Hyperlipidemia type: unspecified Qualified Code(s): E78.5 - Hyperlipidemia , unspecified (5) Renal cell carcinoma Code(s): C64.9 - MALIGNANT NEOPLASM OF UNSP KIDNEY, EXCEPT RENAL PELVIS Status : Chronic Qualifiers: Laterality: right Qualified Code(s): C64.1 - Malignant neoplasm of right kidney, except renal pelvis - Plan recovering well post op, renal function and hematocrit are stable is working with PT, will need rehab eval continue asp bid, bystolic, norvasc, crestor and protonix marcaine epidural, norco and fentanyl prn, benadryl prn itching hemostable Is on sunitinib for renal cell ca (10on 7off cycle) will f/u
[2019-06-11] MEDS: Sodium Chloride 0.9% 1,000 ML IV SCH (12:09)
[2019-06-11] MEDS: Amlodipine 5 MG TAB PO SCH (14:04)
[2019-06-11] MEDS: Nebivolol HCl 5 MG TAB PO SCH (20:45)
[2019-06-12] MEDS: HYDROcodone/Acetaminophen 10/325 mg Tablet PO PRN ×3 (00:05→09:01)
[2019-06-12] MEDS: Sodium Chloride 0.9% 1,000 ML IV SCH ×3 (00:57→13:55)
[2019-06-12] MEDS: Aspirin 81 mg Enteric Coated Tablet PO SCH (08:23)
[2019-06-12] MEDS: Senokot S 8.6-50 MG TAB PO SCH (08:24)
[2019-06-12] MEDS: Multivitamin W/ Minerals 1 TAB PO SCH (08:24)
[2019-06-12] MEDS: Ferrous Gluconate 324 MG TAB PO SCH (08:24)
[2019-06-12] MEDS: Rosuvastatin 10 MG TAB PO SCH (08:24)
[2019-06-12] MEDS: Amlodipine 5 MG TAB PO SCH (08:25)
[2019-06-12] MEDS: Ondansetron PF 4 MG/2 ML Vial IVP PRN (10:26)
[2019-06-12 11:58] VITALS: BP 114/73; TEMP 98.8
== END 2019-06-12 15:00 | disposition home or self-care (01) | DRG 470 ==
LOC: SJJU 06-10 05:35 → SURG B 06-10 10:50
PROVIDERS: ADMIT Orthopaedic Surgery; ATTEND Orthopaedic Surgery
PROC: 0SR904A Replacement of Right Hip Joint with Ceramic on Polyethylene Synthetic Substitute, Uncemented, Open Approach (ICD-10-PCS; principal; 2019-06-10)
DX: M16.11 Unilateral primary osteoarthritis, right hip (principal); M87.851 Other osteonecrosis, right femur; C64.1 Malignant neoplasm of right kidney, except renal pelvis; E78.5 Hyperlipidemia, unspecified; I10 Essential (primary) hypertension; Z85.528 Personal history of other malignant neoplasm of kidney; Z90.5 Acquired absence of kidney; Z79.899 Other long term (current) drug therapy; Z79.82 Long term (current) use of aspirin
CPT/HCPCS: 36415; 74018; 80053; 85027; J1200; J1580; J1885; J2001; J2250; J2405; J2550; J2704; J2795; J3010; J3490; Q0163

== ENCOUNTER 2019-08-01 08:01 | Outpatient (CLI) | payer BC ==
--- NOTE | 2019-08-01 10:54 | CT ---
CT CHEST WITHOUT CONTRAST: Date: 08/01/2019 HISTORY: Lung cancer. Lung nodule. COMPARISON: CT of the chest from April 2019. FINDINGS: There is a double aortic arch with a complete vascular ring. There is narrowing of the esophagus at t he vascular ring. The ascending thoracic aorta is right-sided. Prior right nephrectomy. Left kidney evaluation is limited, although there does appear to be a 2.0 x 3.0 mm calculus at the vergara perior pole. No mediastinal adenopathy. No pericardial effusion. The lobular mass at the right upper lobe has greatest transverse dimension of 20.0 mm, previously 16. 0 mm. Peripheral mass of the left upper lobe with pathologic adjacent third and fourth rib fractures has not significantly grown. No other new suspicious pulmonary nodule. The sternum and manubrium are intact. Thoracic spine is int act. IMPRESSION: 1. Progressive disease with interval size increased right upper lobe lobular/ovoid pulmonary nodule. 2. Similar appearance of the peripheral mass left upper lobe with pathologic left third and fourth r ib fractures. 3. No new foci of metastasis. POS: [facility]
== END 2019-08-01 08:02 | disposition home or self-care (01) ==
LOC: BICCT 08:01
PROVIDERS: ATTEND Internal Medicine Hematology & Oncology
DX: C64.1 Malignant neoplasm of right kidney, except renal pelvis (principal); C78.00 Secondary malignant neoplasm of unspecified lung; R91.1 Solitary pulmonary nodule; M84.48XA Pathological fracture, other site, initial encounter for fracture
CPT/HCPCS: 71250

== ENCOUNTER 2019-11-04 07:29 | Outpatient (CLI) | payer BC ==
[2019-11-04] MEDS ORDERED: Iopamidol-370 76% 500 ML 1 ML ONE (09:27)
--- NOTE | 2019-11-04 10:16 | CT ---
CT CHEST WITH IV CONTRAST CT ABDOMEN WITH IV CONTRAST: HISTORY: Malignant neoplasm of kidney (except pelvis), secondary polycythemia, other neutropenia. Lung mets, lung nodule. COMPARISON: 08/01/2019 and 05/01/2019. FINDINGS: The double aortic arch with a complete vascular ring surrounding the distal trachea and esophagus is again seen. No mediastinal, hilar, or axillary mass or lymphadenopathy is identified. No pleural or pericardial effusions are seen. The 2 cm lobular nodule in the right upper lobe is stable. The peripheral mass in the left upper lob e with adjacent 3rd and 4th rib fractures is stable measuring 27 x 12 mm. There has been interval in crease in size of the left lower lobe nodule measuring 12 mm. A new 6-7 mm nodule has developed ante rior to this. The 6 mm low-density lesion in the inferomedial aspect of the right lobe of the liver is not definite ly seen on the current study. Changes of cholecystectomy and right nephrectomy are redemonstrated. The right adrenal gland is not visualized and was likely removed during the nephrectomy. The spleen, pancreas, and the left adrenal gland are normal. A tiny nonobstructing left renal calcul us is again seen. No left-sided renal mass is identified. No free air, free fluid, or lymphadenopathy is seen in the abdomen. The small bowel loops are not ab normally dilated. A few subcentimeter left periaortic lymph nodes are stable. There are degenerative changes in the spine. No osteolytic or osteoblastic lesions are seen. There are vascular calcifications without evidence of aneurysmal dilatation of the thoracoabdominal aorta. IMPRESSION: Interval increase in size of the left lower lobe lung nodule and development of a new left lower lobe lung nodule since 05/01/2019. The remainder of the exam is otherwise stable. POS: [facility]
== END 2019-11-04 07:30 | disposition home or self-care (01) ==
LOC: BICCT 07:29
PROVIDERS: ATTEND Internal Medicine Hematology & Oncology
DX: C64.9 Malignant neoplasm of unspecified kidney, except renal pelvis (principal); C78.00 Secondary malignant neoplasm of unspecified lung; R91.1 Solitary pulmonary nodule; D70.8 Other neutropenia; D75.1 Secondary polycythemia
CPT/HCPCS: 71260; 74160; Q9967

== ENCOUNTER 2019-12-17 07:46 | Outpatient (CLI) | payer BC ==
--- NOTE | 2019-12-17 09:40 | CT ---
CT CHEST WITH IV CONTRAST: HISTORY: Malignant neoplasm of kidney (except pelvis), secondary polycythemia, and other neutropenia. Lung me ts, lung nodule. COMPARISON: 11/04/2019. FINDINGS: The double aortic arch with a complete vascular ring surrounding the distal trachea and esophagus is again seen. No mediastinal, hilar, or axillary mass or lymphadenopathy is identified. No pleural or pericardial effusions are seen. The 2 cm lobular nodule in the right upper lobe is stable. The 27 x 12 mm peripheral mass in the lef t upper lobe with adjacent 3rd and 4th rib fractures is stable. The 12 mm left lower lobe nodule is stable. The previously noted 6-7 mm nodule anterior to this currently measures about 5 mm. The liver, spleen, pancreas, adrenal glands, and visualized portions of the left kidney are normal. The patient is post cholecystectomy and right nephrectomy. There are degenerative changes in the spine. No osteolytic or osteoblastic lesions are seen. There are vascular calcifications without evidence of aneurysmal dilatation of the thoracic aorta. IMPRESSION: Minimal interval decrease in size of the left lung nodule; otherwise, stable exam. POS: [facility]
[2019-12-17] MEDS ORDERED: Iopamidol 370 76% 100 ML VIAL ONE (10:32)
== END 2019-12-17 07:47 | disposition home or self-care (01) ==
LOC: CT 07:46
PROVIDERS: ATTEND Internal Medicine Hematology & Oncology
DX: C64.1 Malignant neoplasm of right kidney, except renal pelvis (principal); C78.00 Secondary malignant neoplasm of unspecified lung; R91.1 Solitary pulmonary nodule
CPT/HCPCS: 71260; 82565; Q9967

== ENCOUNTER 2020-02-24 07:49 | Outpatient (CLI) | payer BC ==
--- NOTE | 2020-02-24 09:17 | CT ---
CT OF THE CHEST WITH IV CONTRAST: INDICATION: A 65-year-old male with lung metastatic disease from renal carcinoma status post right nephrectomy. COMPARISON: Prior exam dated 12/17/2019. FINDINGS: The pleural-based soft tissue mass seen adjacent to incompletely healed left 3rd and 4th rib fracture s suspicious for metastatic disease to the left chest wall is larger now measuring 3.3 x 1.7 cm where previously this measured approximately 2.8 x 1.3 cm. The right upper lobe pulmonary nodule is slightly larger measuring 2.1 cm where previously it measure d 1.9 cm. The left lower lobe pulmonary nodule previously measuring approximately 1.2 cm and now measures 1.5 c m. Smaller nodule in the left lower lobe on image 62 of series 3 now measures approximately 7 mm whe re previously it measured 2.6 mm. No new pulmonary nodule is evident. No pleural effusion is eviden t. There is a right-sided aortic arch with vascular ring between the left common carotid and left subcla vian artery which is similar appearing. Postsurgical change of a right nephrectomy is again noted. There is a 3.7 mm nonobstructing calculus within the superior pole of the left kidney. The gallbladd er is surgically absent. No new destructive osseous lesion is evident. IMPRESSION: Enlarging metastatic lesions of the thorax. POS: [facility]
[2020-02-24] MEDS ORDERED: Iopamidol-370 76% 500 ML 1 ML ONE (13:28)
== END 2020-02-24 07:50 | disposition home or self-care (01) ==
LOC: BICCT 07:49
PROVIDERS: ATTEND Internal Medicine Hematology & Oncology
DX: C64.1 Malignant neoplasm of right kidney, except renal pelvis (principal); C78.00 Secondary malignant neoplasm of unspecified lung; R91.1 Solitary pulmonary nodule
CPT/HCPCS: 71260; 82565; Q9967

== ENCOUNTER 2020-03-10 07:57 | Outpatient (CLI) | payer BC ==
--- NOTE | 2020-03-10 09:48 | CT ---
METASTATIC RENAL CANCER: HISTORY: Followup exam. COMPARISON: 05/01/2019. FINDINGS: NONCONTRAST HEAD CT: No parenchymal hemorrhage. No extraaxial hematoma. No midline shift. Basilar cisterns are patent. Brain volume is age appropriate. Cortical lizama-white matter differentiation is preserved. No hydrocephalus. Adequate aeration of sinuses and mastoid air cells. Intact calvarium. POST CONTRAST IMAGES: No pathologic enhancement of the brain parenchyma. IMPRESSION: 1. No acute intracranial process. 2. No pathologic enhancement of the brain parenchyma. POS: [facility]
--- NOTE | 2020-03-10 11:51 | NM ---
Radionucleotide bone scan HISTORY: Renal cell carcinoma. COMPARISON: 05/19/2019. FINDINGS: Heterogeneous uptake at each shoulder, knee, and foot consistent with degenerative changes. Uptake about the right hip consistent with interval orthopedic replacement. Tiny focus at the right sixth anterior costochondral junction is slightly more conspicuous than on th e prior study and may be related to trauma. Very subtle focus projecting over the left posterior parietal calvarium is unchanged. No new areas of abnormal uptake evident. IMPRESSION : Interval right hip replacement. Chronic-type findings are stable. No scintigraphic evidence of osteoblastic metastases.
[2020-03-10] MEDS ORDERED: Iopamidol 370 76% 100 ML VIAL ONE (13:40)
[2020-03-10] MEDS ORDERED: Iopamidol-370 76% 500 ML 1 ML ONE (13:40)
== END 2020-03-10 07:58 | disposition home or self-care (01) ==
LOC: EEVIPCON 07:57 → CT 07:57
PROVIDERS: ATTEND Internal Medicine Hematology & Oncology
DX: C64.1 Malignant neoplasm of right kidney, except renal pelvis (principal); C78.00 Secondary malignant neoplasm of unspecified lung; R91.1 Solitary pulmonary nodule
CPT/HCPCS: 70470; 78306; A9503; Q9967

== ENCOUNTER 2020-05-04 08:31 | Outpatient (CLI) | payer BC ==
[2020-05-04] MEDS ORDERED: Iopamidol 370 76% 100 ML VIAL ONE (09:40)
--- NOTE | 2020-05-04 10:31 | CT ---
CT Chest W Con History: Kidney cancer with lung metastases. Comparison: CT examination February 24, 2020 Findings: Findings of a double aortic arch with the descending aorta on the right side of the hemitho rax. Prior right nephrectomy. Punctate 2 mm calculus superior left renal collecting system. No pericardial effusion. The right upper lobe nodule measures up to 19 mm in greatest dimension, prev iously 21 mm. The peripheral left upper lobe nodule measures up to 3 cm in greatest dimension, previously 3.3 cm. Pathologic fracture left anterior third and fourth ribs. The left upper lobe nodul e point comparison back to examinations dating back to 2017, there is been no significant growth. No new suspicious pulmonary nodule. 3 mm right middle lobe nodule axial image 27 is similar. Left inf rahilar nodule axial image 38 measures approximately 14 mm in greatest dimension, unchanged. No pneumothorax. No effusion. Sternum and manubrium are intact. Impression: 1. Stable disease. No progression. 2. No acute inflammatory process within the chest. 3. Congenital double aortic arch.
== END 2020-05-04 08:32 | disposition home or self-care (01) ==
LOC: CT 08:31
PROVIDERS: ATTEND Internal Medicine Hematology & Oncology
DX: C64.1 Malignant neoplasm of right kidney, except renal pelvis (principal); C78.00 Secondary malignant neoplasm of unspecified lung; R91.1 Solitary pulmonary nodule
CPT/HCPCS: 71260; 82565; Q9967

== ENCOUNTER 2020-07-23 08:31 | Outpatient (CLI) | payer BC, OTHER | END 2020-07-23 08:32 | disposition home or self-care (01) | LOC: BICCT 08:31 | PROVIDERS: ATTEND Internal Medicine Hematology & Oncology | DX: C78.02 Secondary malignant neoplasm of left lung (principal); C64.9 Malignant neoplasm of unspecified kidney, except renal pelvis; R91.1 Solitary pulmonary nodule; Z90.5 Acquired absence of kidney | CPT/HCPCS: 71250; 74150 ==

== ENCOUNTER 2020-08-01 14:44 | Inpatient (IN) | payer BC, OTHER ==
[~2020-08-01 14:44] MED LIST: Iopamidol-370 76% 500 ML 1 ML ONE
[2020-08-01 15:27] LABS: #Lymphocytes 1.1 thou/uL (1.20-3.40); #Monocytes 0.3 thou/uL (0.11-0.59); #Neutrophils 2.9 thou/uL (1.40-6.50); %Basophils 0.1 % (0.0-1.0); %Eosinophils 0.2 % (0.0-10.0); %Lymphocytes 25.1 % (21.0-51.0); %Monocytes 7.5 % (0.0-10.0); %Neutrophils 67.1 % (42.0-75.0); Mean Corpuscular HGB CONC 33.9 g/dL (32.0-36.0); Mean Corpuscular Hemoglobin 39.4 pg (27.0-31.0); Platelet Count 161 thou/uL (130-400); RBC Distribution Width 13.5 % (11.5-14.5); Red Blood Cell (RBC) Count 4.31 mill/uL (4.70-6.10); White Blood Cell (WBC) Count 4.3 thou/uL (4.8-10.8)
[2020-08-01 15:43] LABS: MDiff Complete? YES; Macrocytosis SLIGHT = 6-15 cells (100X) (0-5/hpf); Platelet Morphology Comment Appears Adequate; Polychromasia SLIGHT = 2-3 cells (100X) (0-2/hpf)
[2020-08-01 15:48] LABS: ALT (SGPT) 14 U/L (8-55); AST (SGOT) 13 U/L (5-34); Albumin 3.8 g/dL (3.4-4.8); Alkaline Phosphatase 71 U/L (40-110); Anion Gap 17 mmol/L (10-20); BUN (Urea Nitrogen) 12 mg/dL (8.4-25.7); Bilirubin, Total 1.3 mg/dL (0.2-1.2); Calc. Creatinine Clearance 0 mL/min (70-130); Calcium 8.9 mg/dL (7.8-10.44); Carbon Dioxide 20 mmol/L (23-31); Chloride 105 mmol/L (98-107); Globulin 2.9 g/dL (2.4-3.5); Glucose 138 mg/dL (80-115); Potassium 3.6 mmol/L (3.5-5.1); Protein, Total 6.7 g/dL (5.8-8.1); Sodium 138 mmol/L (136-145)
[2020-08-01] MEDS ORDERED: Sodium Chloride 0.9% 100 ML ONE (15:51)
[2020-08-01] MEDS ORDERED: Cefepime 2 GM VIAL ONE (15:51)
[2020-08-01 16:09] LABS: Bacteria/HPF None Seen HPF (None Seen); Bilirubin Negative (Negative); Blood, Urine Negative (Negative); Clarity Clear (Clear); Glucose, Urine (Dipstick) Normal (Negative); Ketone, Urine Trace mg/dL (Negative); Leukocyte Negative Leu/uL (Negative); Nitrite Negative (Negative); Protein, Urine (Dipstick) 70 mg/dL (Neg-Trace); RBC/HPF 0-3 HPF (0-3); Specific Gravity, Urine 1.041 (1.002-1.036); Squamous Epithelial 0-3 HPF (0-3); WBC/HPF 0-3 HPF (0-3)
[2020-08-01] MEDS ORDERED: Vancomycin 1 GM/200 ML BAG ONE (16:24)
[2020-08-01] MEDS ORDERED: Ondansetron PF 4 MG/2 ML Vial IVP PRN (17:02)
[2020-08-01] MEDS ORDERED: Ondansetron ODT 4 MG TAB PO PRN (17:02)
[2020-08-01 17:52] LABS: SARS-CoV-2 NAA Rapid Test Not Detected (NotDetected)
[2020-08-01] MEDS: Sodium Chloride 0.9% 1,000 ML IV SCH (18:19)
[2020-08-01 20:03] VITALS: BMI 31.0
[2020-08-01] MEDS: Acetaminophen 325 MG TAB PO PRN (20:03)
[2020-08-01] MEDS ORDERED: Vancomycin HCl 750 MG in Sodium Chloride 0.9% 100 ML IVPB SCH (20:30)
[2020-08-01] MEDS ORDERED: Vancomycin HCl 750 MG in Sodium Chloride 0.9% 250 ML 250 ML IVPB SCH (20:45)
[2020-08-01] MEDS ORDERED: Ibuprofen 800 MG TAB PO SCH (21:30)
[2020-08-01] MEDS: Simvastatin 10 MG TAB PO SCH (21:57)
[2020-08-01] MEDS: Cefepime 2 GM in Sodium Chloride 0.9% 100 ML IVPB SCH (22:59)
[2020-08-02] MEDS: Acetaminophen 325 MG TAB PO PRN ×2 (02:18→17:49)
[2020-08-02] MEDS ORDERED: VANCOMYCIN 1.75 GM/350 ML BAG 1.75 GM in Premix Bag 1 BAG IVPB SCH ×2 (04:00→20:00)
[2020-08-02 05:12] LABS: #Lymphocytes 1.1 thou/uL (1.20-3.40); #Monocytes 0.5 thou/uL (0.11-0.59); #Neutrophils 2.5 thou/uL (1.40-6.50); %Eosinophils 1.1 % (0.0-10.0); %Lymphocytes 26.7 % (21.0-51.0); %Monocytes 11.5 % (0.0-10.0); %Neutrophils 60.6 % (42.0-75.0); Hemoglobin 14.6 g/dL (14.0-18.0); Mean Corpuscular HGB CONC 32.8 g/dL (32.0-36.0); Mean Corpuscular Hemoglobin 38.2 pg (27.0-31.0); Platelet Count 144 thou/uL (130-400); RBC Distribution Width 13.7 % (11.5-14.5); Red Blood Cell (RBC) Count 3.83 mill/uL (4.70-6.10); White Blood Cell (WBC) Count 4.1 thou/uL (4.8-10.8)
[2020-08-02 05:35] LABS: Anion Gap 13 mmol/L (10-20); BUN (Urea Nitrogen) 11 mg/dL (8.4-25.7); Calc. Creatinine Clearance 91 mL/min (70-130); Carbon Dioxide 21 mmol/L (23-31); Chloride 107 mmol/L (98-107); Glucose 104 mg/dL (80-115); Sodium 138 mmol/L (136-145)
[2020-08-02] MEDS: Cefepime 2 GM in Sodium Chloride 0.9% 100 ML IVPB SCH ×2 (05:55→15:10)
[2020-08-02] MEDS: Sodium Chloride 0.9% 1,000 ML IV SCH ×2 (05:56→15:10)
[2020-08-02] MEDS: Enoxaparin Sodium 40 MG/0.4 ML SYRINGE SC SCH (09:15)
[2020-08-02] MEDS: Saccharomyces boulardii 250 MG CAP PO SCH (09:15)
[2020-08-02] MEDS: Aspirin 81 mg Enteric Coated Tablet PO SCH (09:15)
[2020-08-02] MEDS: Nebivolol HCl 5 MG TAB PO SCH (09:15)
[2020-08-02] MEDS ORDERED: Potassium Chloride 20 MEQ TAB PO SCH (09:45)
[2020-08-02] MEDS: Simvastatin 10 MG TAB PO SCH (20:29)
[2020-08-03] MEDS: Acetaminophen 325 MG TAB PO PRN (06:18)
[2020-08-03 06:37] LABS: #Lymphocytes 1.1 thou/uL (1.20-3.40); #Monocytes 0.3 thou/uL (0.11-0.59); %Basophils 0.4 % (0.0-1.0); %Eosinophils 0.8 % (0.0-10.0); %Neutrophils 67.7 % (42.0-75.0); Hemoglobin 14.9 g/dL (14.0-18.0); Mean Corpuscular HGB CONC 34.3 g/dL (32.0-36.0); Mean Corpuscular Hemoglobin 40.1 pg (27.0-31.0); Mean Platelet Volume 7.8 fL (7.4-10.4); Platelet Count 166 thou/uL (130-400); RBC Distribution Width 13.5 % (11.5-14.5); Red Blood Cell (RBC) Count 3.72 mill/uL (4.70-6.10); White Blood Cell (WBC) Count 4.4 thou/uL (4.8-10.8)
[2020-08-03 06:56] LABS: Anion Gap 12 mmol/L (10-20); BUN (Urea Nitrogen) 8 mg/dL (8.4-25.7); Calc. Creatinine Clearance 92 mL/min (70-130); Calcium 8.6 mg/dL (7.8-10.44); Carbon Dioxide 22 mmol/L (23-31); Chloride 106 mmol/L (98-107); Glucose 94 mg/dL (80-115); Potassium 3.4 mmol/L (3.5-5.1); Sodium 137 mmol/L (136-145)
[2020-08-03] MEDS: Aspirin 81 mg Enteric Coated Tablet PO SCH (09:06)
[2020-08-03] MEDS: Enoxaparin Sodium 40 MG/0.4 ML SYRINGE SC SCH (09:06)
[2020-08-03] MEDS: Saccharomyces boulardii 250 MG CAP PO SCH (09:06)
[2020-08-03] MEDS: Nebivolol HCl 5 MG TAB PO SCH (09:09)
[2020-08-03 09:30] VITALS: BP 137/74; TEMP 98.6
[2020-08-03] MEDS ORDERED: Potassium Chloride 20 MEQ TAB PO SCH (09:45)
== END 2020-08-03 11:21 | disposition home or self-care (01) | DRG 866 ==
LOC: ERS 14:44 → ONC 16:37
PROVIDERS: ADMIT Family Medicine; ATTEND Internal Medicine
DX: B34.9 Viral infection, unspecified (principal); C78.00 Secondary malignant neoplasm of unspecified lung; C64.1 Malignant neoplasm of right kidney, except renal pelvis; N17.9 Acute kidney failure, unspecified; D70.1 Agranulocytosis secondary to cancer chemotherapy; E78.5 Hyperlipidemia, unspecified; I12.9 Hypertensive chronic kidney disease with stage 1 through stage 4 chronic kidney disease, or unspecified chronic kidney disease; N18.30 Chronic kidney disease, stage 3 unspecified; Z96.641 Presence of right artificial hip joint; K21.9 Gastro-esophageal reflux disease without esophagitis; E87.6 Hypokalemia; Z20.822 Contact with and (suspected) exposure to COVID-19; T45.1X5A Adverse effect of antineoplastic and immunosuppressive drugs, initial encounter; Z88.1 Allergy status to other antibiotic agents; Z88.6 Allergy status to analgesic agent; Z88.8 Allergy status to other drugs, medicaments and biological substances; Z79.82 Long term (current) use of aspirin; Z90.49 Acquired absence of other specified parts of digestive tract; Z90.89 Acquired absence of other organs; Z90.5 Acquired absence of kidney; Z87.891 Personal history of nicotine dependence
CPT/HCPCS: 0240U; 36415; 71045; 71260; 80048; 80053; 81003; 81015; 83605; 85025; 87040; 87086; 87324; 87449; 87493; 93005; 96365; 96367; J0692; J1650; J3370; J3490; J7050; Q9967

== ENCOUNTER 2020-11-24 07:05 | Outpatient (CLI) | payer BC, OTHER ==
[2020-11-24] MEDS ORDERED: Iopamidol 370 76% 100 ML VIAL ONE (09:04)
== END 2020-11-24 07:06 | disposition home or self-care (01) ==
LOC: BICCT 07:05
PROVIDERS: ATTEND Internal Medicine Hematology & Oncology
DX: C64.1 Malignant neoplasm of right kidney, except renal pelvis (principal); C78.00 Secondary malignant neoplasm of unspecified lung; R91.1 Solitary pulmonary nodule; N20.0 Calculus of kidney; Z90.5 Acquired absence of kidney
CPT/HCPCS: 71260; 74177; Q9967

== ENCOUNTER 2021-02-23 07:32 | Outpatient (CLI) | payer BC, OTHER ==
[2021-02-23] MEDS ORDERED: Iopamidol-370 76% 500 ML 1 ML ONE (11:00)
== END 2021-02-23 07:33 | disposition home or self-care (01) ==
LOC: BICCT 07:32
PROVIDERS: ATTEND Internal Medicine Hematology & Oncology
DX: C64.9 Malignant neoplasm of unspecified kidney, except renal pelvis (principal); C78.00 Secondary malignant neoplasm of unspecified lung; R91.1 Solitary pulmonary nodule
CPT/HCPCS: 71260; 74177; 82565; Q9967

== ENCOUNTER 2021-04-25 12:08 | Outpatient (CLI) | payer BC, OTHER | END 2021-04-25 12:09 | disposition home or self-care (01) | LOC: BICRAD 12:08 | PROVIDERS: ATTEND Internal Medicine | DX: M25.512 Pain in left shoulder (principal); K76.9 Liver disease, unspecified; M19.012 Primary osteoarthritis, left shoulder ==

== ENCOUNTER 2021-05-12 09:48 | Outpatient (CLI) | payer BC, OTHER ==
[2021-05-12 12:01] LABS: Hemoglobin 17.6 g/dL (13.5-17.5); Mean Corpuscular Hemoglobin 29.4 pg (27.0-33.0); Mean Corpuscular Volume 89.1 fl (81.2-95.1); Mean Platelet Volume 11.2 fl (7.4-10.4); Platelet Count 218 10x3/uL (150-450); RBC Distribution Width 13.9 % (11.5-14.5); Red Blood Cell (RBC) Count 5.99 10x6/uL (4.32-5.72); White Blood Cell (WBC) Count 5.6 10x3/uL (3.5-10.5)
[2021-05-12 12:05] LABS: INR-International Normal Ratio 1.1; Prothrombin Time 11.9 sec (9.5-12.1)
[2021-05-12 12:16] LABS: Anion Gap 15 mmol/L (10-20); BUN (Urea Nitrogen) 13 mg/dL (8.4-25.7); Calc. Creatinine Clearance 0 mL/min (70-130); Calcium 9.4 mg/dL (7.8-10.44); Carbon Dioxide 21 mmol/L (23-31); Chloride 106 mmol/L (98-107); Glucose 98 mg/dL (80-115); Potassium 4.9 mmol/L (3.5-5.1); Sodium 137 mmol/L (136-145)
[2021-05-12 17:34] LABS: SARS-CoV-2 PCR by NAA Not Detected (NotDetected)
== END 2021-05-12 09:49 | disposition home or self-care (01) ==
LOC: LABBT 09:48
PROVIDERS: ATTEND Internal Medicine Cardiovascular Disease
DX: Z01.812 Encounter for preprocedural laboratory examination (principal); Z20.822 Contact with and (suspected) exposure to COVID-19
CPT/HCPCS: 80048; 85027; 85610; U0003; U0005

== ENCOUNTER 2021-05-17 06:03 | Day surgery (SDC) | payer BC ==
[2021-05-11 11:22] VITALS: BMI 31.0
[2021-05-17] MEDS ORDERED: Heparin 25,000 units/D5W 500 ML ONE (06:39)
[2021-05-17] MEDS ORDERED: Heparin 10,000 UNITS/ 10 ML VIAL ONE (06:39)
[2021-05-17] MEDS ORDERED: Fentanyl 100 MCG/2 ML VIAL ONE ×3 (07:04→12:31)
[2021-05-17] MEDS ORDERED: Succinylcholine 200 MG/10 ml SYRINGE FS ONE (07:43)
[2021-05-17] MEDS ORDERED: ePHEDrine 50 MG/ML VIAL ONE (07:43)
[2021-05-17] MEDS ORDERED: Phenylephrine 10 MG/ML VIAL ONE (07:43)
[2021-05-17] MEDS ORDERED: Dexamethasone 20 MG/5 ML VIAL ONE (07:43)
[2021-05-17] MEDS ORDERED: Ondansetron PF 4 MG/2 ML Vial ONE (07:43)
[2021-05-17] MEDS ORDERED: PROPOFOL 200 MG/20 ML VIAL ONE (07:43)
[2021-05-17] MEDS ORDERED: Protamine Sulfate 50 MG/5 ML VIAL ONE (10:33)
== END 2021-05-17 15:35 | disposition home or self-care (01) ==
LOC: CCL 06:03
PROVIDERS: ATTEND Internal Medicine Cardiovascular Disease
PROC: B246ZZ4 Ultrasonography of Right and Left Heart, Transesophageal (ICD-10-PCS; principal; 2021-05-17)
PROC: 02583ZZ Destruction of Conduction Mechanism, Percutaneous Approach (ICD-10-PCS; principal; 2021-05-17)
PROC: B244ZZZ Ultrasonography of Right Heart (ICD-10-PCS; principal; 2021-05-17)
PROC: 02K83ZZ Map Conduction Mechanism, Percutaneous Approach (ICD-10-PCS; principal; 2021-05-17)
DX: I48.19 Other persistent atrial fibrillation (principal); I11.9 Hypertensive heart disease without heart failure; Z87.891 Personal history of nicotine dependence; Z79.01 Long term (current) use of anticoagulants; Z79.899 Other long term (current) drug therapy; Z88.1 Allergy status to other antibiotic agents; Z88.5 Allergy status to narcotic agent; Z88.8 Allergy status to other drugs, medicaments and biological substances; Z90.5 Acquired absence of kidney
CPT/HCPCS: 85347; 93005; 93312; 93613; 93655; 93656; 93657; 93662; C1730; C1731; C1732; C1759; C1776; C1894; C2630; J1100; J1644; J2370; J2405; J2704; J2720; J3010; J3490

== ENCOUNTER 2021-07-11 14:29 | Outpatient (CLI) | payer BC | END 2021-07-11 14:30 | disposition home or self-care (01) | LOC: ULT 14:29 | PROVIDERS: ATTEND Internal Medicine Cardiovascular Disease | DX: E04.2 Nontoxic multinodular goiter (principal) | CPT/HCPCS: 76536 ==

== ENCOUNTER 2021-07-13 07:58 | Outpatient (CLI) | payer BC ==
[2021-07-13] MEDS ORDERED: Iopamidol-370 76% 500 ML 1 ML ONE (09:37)
== END 2021-07-13 07:59 | disposition home or self-care (01) ==
LOC: CT 07:58
PROVIDERS: ATTEND Internal Medicine Hematology & Oncology
DX: C64.1 Malignant neoplasm of right kidney, except renal pelvis (principal); R91.1 Solitary pulmonary nodule; C78.00 Secondary malignant neoplasm of unspecified lung; R91.8 Other nonspecific abnormal finding of lung field; N20.0 Calculus of kidney
CPT/HCPCS: 70470; 71260; 74177; 82565; Q9967

== ENCOUNTER 2021-07-21 11:41 | Outpatient (CLI) | payer BC ==
[2021-07-21 13:28] LABS: Mean Corpuscular HGB CONC 32.6 g/dL (32.0-36.0); Mean Corpuscular Hemoglobin 29.3 pg (27.0-33.0); Mean Corpuscular Volume 89.8 fl (81.2-95.1); Mean Platelet Volume 10.6 fl (7.4-10.4); Platelet Count 206 10x3/uL (150-450); RBC Distribution Width 14.8 % (11.5-14.5); Red Blood Cell (RBC) Count 5.47 10x6/uL (4.32-5.72); White Blood Cell (WBC) Count 5.4 10x3/uL (3.5-10.5)
[2021-07-21 13:48] LABS: Prothrombin Time 11.3 sec (9.5-12.1)
[2021-07-21 13:51] LABS: ALT (SGPT) 17 U/L (8-55); AST (SGOT) 17 U/L (5-34); Albumin 4.1 g/dL (3.4-4.8); Alkaline Phosphatase 76 U/L (40-110); Anion Gap 13 mmol/L (10-20); BUN (Urea Nitrogen) 12 mg/dL (8.4-25.7); Calc. Creatinine Clearance 0 mL/min (70-130); Calcium 8.7 mg/dL (7.8-10.44); Carbon Dioxide 24 mmol/L (23-31); Chloride 107 mmol/L (98-107); Globulin 2.7 g/dL (2.4-3.5); Glucose 81 mg/dL (80-115); Potassium 4.3 mmol/L (3.5-5.1); Protein, Total 6.8 g/dL (5.8-8.1); Sodium 140 mmol/L (136-145)
[2021-07-21 23:53] LABS: SARS-CoV-2 PCR by NAA Not Detected (NotDetected)
== END 2021-07-21 11:42 | disposition home or self-care (01) ==
LOC: LABBT 11:41
PROVIDERS: ATTEND Internal Medicine Cardiovascular Disease
DX: Z01.812 Encounter for preprocedural laboratory examination (principal); D72.819 Decreased white blood cell count, unspecified; N28.9 Disorder of kidney and ureter, unspecified; R97.20 Elevated prostate specific antigen [PSA]; Z20.822 Contact with and (suspected) exposure to COVID-19
CPT/HCPCS: 80053; 85027; 85610; 86850; 86900; 86901; U0003; U0005

== ENCOUNTER 2021-10-18 08:12 | Outpatient (CLI) | payer BC ==
[2021-10-18] MEDS ORDERED: Magnevist 469MG/ML 20 ML VIAL ONE (10:15)
== END 2021-10-18 08:13 | disposition home or self-care (01) ==
LOC: BICMRI 08:12
PROVIDERS: ATTEND Internal Medicine Hematology & Oncology
DX: C64.9 Malignant neoplasm of unspecified kidney, except renal pelvis (principal); M25.552 Pain in left hip
CPT/HCPCS: 82565; A9579

== ENCOUNTER 2021-10-24 08:36 | Outpatient (CLI) | payer BC | END 2021-10-24 08:37 | disposition home or self-care (01) | LOC: LABBT 08:36 | PROVIDERS: ATTEND Internal Medicine Cardiovascular Disease | DX: Z01.810 Encounter for preprocedural cardiovascular examination (principal) | CPT/HCPCS: 93005; 93010 ==

== ENCOUNTER 2021-10-26 07:10 | Day surgery (SDC) | payer BC ==
[2021-10-24 09:51] LABS: Hemoglobin 17.4 g/dL (13.5-17.5); Mean Corpuscular HGB CONC 33.5 g/dL (32.0-36.0); Mean Corpuscular Hemoglobin 30.1 pg (27.0-33.0); Mean Corpuscular Volume 89.6 fl (81.2-95.1); Mean Platelet Volume 10.6 fl (7.4-10.4); Platelet Count 209 10x3/uL (150-450); RBC Distribution Width 13.4 % (11.5-14.5); Red Blood Cell (RBC) Count 5.79 10x6/uL (4.32-5.72); White Blood Cell (WBC) Count 5.6 10x3/uL (3.5-10.5)
[2021-10-24 09:59] LABS: Bilirubin Neg (Negative); Blood, Urine Negative (Negative); Clarity Clear (Clear); Glucose, Urine (Dipstick) Normal (Negative); Ketone, Urine Negative (Negative); Leukocyte Negative (Negative); Nitrite Negative (Negative); Protein, Urine (Dipstick) Negative (Neg-Trace); Specific Gravity, Urine 1.005 (1.002-1.036); Urobilinogen Normal mg/dL (Less than 2)
[2021-10-24 10:54] LABS: PTT 28.8 sec (22.0-33.0); Prothrombin Time 10.8 sec (9.5-12.1)
[2021-10-24 10:57] LABS: ALT (SGPT) 12 U/L (8-55); AST (SGOT) 14 U/L (5-34); Albumin 4.5 g/dL (3.4-4.8); Alkaline Phosphatase 77 U/L (40-110); Anion Gap 17 mmol/L (10-20); BUN (Urea Nitrogen) 15 mg/dL (8.4-25.7); Bilirubin, Total 0.7 mg/dL (0.2-1.2); Calc. Creatinine Clearance 0 mL/min (70-130); Calcium 9.5 mg/dL (7.8-10.44); Carbon Dioxide 22 mmol/L (23-31); Chloride 104 mmol/L (98-107); Glucose 99 mg/dL (80-115); Potassium 4.5 mmol/L (3.5-5.1); Protein, Total 7.5 g/dL (5.8-8.1); Sodium 138 mmol/L (136-145)
[2021-10-24 15:44] VITALS: BMI 30.4
[2021-10-26] MEDS ORDERED: Lidocaine 1% (PF) 30 ML VIAL ONE (07:23)
[2021-10-26] MEDS ORDERED: Heparin 10,000 UNITS/ 10 ML VIAL ONE (07:23)
[2021-10-26] MEDS ORDERED: Nitroglycerin 50 MG/250 ML BOT 250 ML ONE (07:23)
[2021-10-26] MEDS ORDERED: Clindamycin/D5W 900 mg/50 ml Premix Bag ONE (07:23)
[2021-10-26] MEDS ORDERED: Protamine Sulfate 50 MG/5 ML VIAL ONE (07:23)
[2021-10-26] MEDS ORDERED: Verapamil 5 MG/2 ML VIAL ONE (07:23)
[2021-10-26] MEDS ORDERED: PHENYLEPHRINE-NS 100 MCG/ML 10 ML SYRINGE ONE (09:28)
[2021-10-26] MEDS ORDERED: PROPOFOL 200 MG/20 ML VIAL ONE (09:28)
[2021-10-26] MEDS ORDERED: Glycopyrrolate 0.2 MG/ML 5 ML SYRINGE ONE (09:28)
[2021-10-26] MEDS ORDERED: Rocuronium Bromide 10 MG/ML (10ML VIAL) ONE (09:28)
[2021-10-26] MEDS ORDERED: fentaNYL Citrate/PF 100 MCG/2 ML SYRINGE ONE (09:34)
[2021-10-26] MEDS ORDERED: Iopamidol 370 76% 100 ML VIAL ONE (09:38)
== END 2021-10-26 14:39 | disposition home or self-care (01) ==
LOC: SDC 07:10
PROVIDERS: ATTEND Internal Medicine Cardiovascular Disease
DX: I48.0 Paroxysmal atrial fibrillation (principal); I10 Essential (primary) hypertension; Z79.01 Long term (current) use of anticoagulants; Z79.82 Long term (current) use of aspirin; Z79.899 Other long term (current) drug therapy; Z88.1 Allergy status to other antibiotic agents; Z88.5 Allergy status to narcotic agent; Z88.8 Allergy status to other drugs, medicaments and biological substances; Z87.891 Personal history of nicotine dependence
CPT/HCPCS: 36140; 80053; 81003; 85027; 85347; 85610; 85730; 86850; 86900; 86901; 93312; 93452; 93462; 93662; C1894; J1644; J2001; J2704; J2720; J3490; Q9967; U0003; U0005

== ENCOUNTER 2021-12-15 07:23 | Outpatient (CLI) | payer BC ==
[2021-12-15] MEDS ORDERED: Iopamidol 370 76% 100 ML VIAL ONE (15:54)
== END 2021-12-15 07:24 | disposition home or self-care (01) ==
LOC: CT 07:23
PROVIDERS: ATTEND Internal Medicine Hematology & Oncology
DX: C78.00 Secondary malignant neoplasm of unspecified lung (principal); C64.9 Malignant neoplasm of unspecified kidney, except renal pelvis; R91.1 Solitary pulmonary nodule; S22.42XD Multiple fractures of ribs, left side, subsequent encounter for fracture with routine healing
CPT/HCPCS: 71260; 74177; 78306; 82565; A9503; Q9967

== ENCOUNTER 2022-01-05 09:39 | Outpatient (CLI) | payer BC ==
[2022-01-05 11:01] LABS: #Basophils 0.1 10x3/uL (0.0-0.2); #Eosinphils 0.3 10x3/uL (0.0-0.5); #Monocytes 0.6 10x3/uL (0.0-1.1); #Neutrophils 2.8 10x3/uL (1.5-8.4); %Basophils 1.2 % (0.0-2.0); %Eosinophils 4.7 % (0.0-6.0); %Lymphocytes 34.6 % (18.0-47.0); %Neutrophils 48.2 % (40.0-75.0); Mean Corpuscular HGB CONC 33.7 g/dL (32.0-36.0); Mean Corpuscular Hemoglobin 29.8 pg (27.0-33.0); Mean Corpuscular Volume 88.6 fl (81.2-95.1); Mean Platelet Volume 10.5 fl (7.4-10.4); Platelet Count 216 10x3/uL (150-450); RBC Distribution Width 14.7 % (11.5-14.5); White Blood Cell (WBC) Count 5.8 10x3/uL (3.5-10.5)
[2022-01-05 11:25] LABS: Prothrombin Time 10.8 sec (9.5-12.1)
[2022-01-05 11:26] LABS: Anion Gap 13 mmol/L (10-20); BUN (Urea Nitrogen) 13 mg/dL (8.4-25.7); Calc. Creatinine Clearance 0 mL/min (70-130); Calcium 9.5 mg/dL (7.8-10.44); Carbon Dioxide 23 mmol/L (23-31); Chloride 105 mmol/L (98-107); Estimated GFR 63; Glucose 92 mg/dL (80-115); Potassium 4.5 mmol/L (3.5-5.1); Sodium 136 mmol/L (136-145)
== END 2022-01-05 09:40 | disposition home or self-care (01) ==
LOC: LABBT 09:39
PROVIDERS: ATTEND Orthopaedic Surgery
DX: U07.1 COVID-19 (principal); Z01.818 Encounter for other preprocedural examination; M87.052 Idiopathic aseptic necrosis of left femur
CPT/HCPCS: 80048; 85025; 85610; 87081; 87811; 93005; 93010; U0003; U0005

== ENCOUNTER 2022-01-10 06:37 | Inpatient (IN) | payer MEDICARE, BC ==
[2022-01-09 09:20] VITALS: BMI 30.4
[2022-01-10] MEDS ORDERED: Tranexamic Acid 1,000 MG/10 ML VIAL ONE (07:25)
[2022-01-10] MEDS ORDERED: Sodium Chloride 0.9% 100 ML ONE (07:27)
[2022-01-10] MEDS ORDERED: Vancomycin HCl 1.5 GM in Sodium Chloride 0.9% 250 ML 300 ML IVPB SCH (07:45)
[2022-01-10] MEDS ORDERED: Vancomycin 1.5 GRAM/300 ML BAG 1.5 GM in Premix Bag 1 BAG IVPB SCH (07:45)
[2022-01-10] MEDS ORDERED: Gentamicin Sulfate 120 MG in Premix Bag 1 BAG IVPB SCH (08:00)
[2022-01-10] MEDS ORDERED: Fentanyl 100 MCG/2 ML VIAL ONE ×2 (08:25→11:25)
[2022-01-10] MEDS ORDERED: Lidocaine 1% MPF 2 ML VIAL ONE (08:25)
[2022-01-10] MEDS ORDERED: Midazolam HCl 2 mg/2 ml Vial ONE (08:25)
[2022-01-10] MEDS ORDERED: Promethazine HCl 25 MG/ML VIAL IM PRN ×2 (08:51→17:57)
[2022-01-10] MEDS ORDERED: diphenhydrAMINE 25 MG CAP PO PRN ×2 (08:51→17:57)
[2022-01-10] MEDS ORDERED: Ondansetron PF 4 MG/2 ML Vial IVP PRN (08:51)
[2022-01-10] MEDS ORDERED: Acetaminophen 325 MG TAB PO PRN (08:51)
[2022-01-10] MEDS ORDERED: Zolpidem Tartrate 5 MG TAB PO PRN ×2 (08:51→17:57)
[2022-01-10] MEDS ORDERED: HYDROcodone/Acetaminophen 10/325 mg Tablet PO PRN ×2 (08:51)
[2022-01-10] MEDS ORDERED: Propofol 500 MG/50 ML VIAL ONE (08:53)
[2022-01-10] MEDS ORDERED: fentaNYL Citrate/PF 100 MCG/2 ML SYRINGE ONE (08:58)
[2022-01-10] MEDS ORDERED: CEFAZOLIN 2 GM in Sodium Chloride 0.9% 100 ML IVPB SCH (09:00)
[2022-01-10] MEDS ORDERED: Bupivacaine PF 0.5% 30 ML VIAL ONE (09:03)
[2022-01-10] MEDS ORDERED: PHENYLEPHRINE-NS 100 MCG/ML 10 ML SYRINGE ONE (09:04)
[2022-01-10] MEDS ORDERED: Phenylephrine 10 MG/ML VIAL ONE ×2 (09:04→09:24)
[2022-01-10] MEDS ORDERED: PROPOFOL 200 MG/20 ML VIAL ONE (09:24)
[2022-01-10] MEDS ORDERED: ePHEDrine 50 MG/ML VIAL ONE (09:24)
[2022-01-10] MEDS ORDERED: Bupivacaine HCl 0.5%/Epinephrine 1:200,000/PF 30 ml Vial ONE (09:24)
[2022-01-10] MEDS ORDERED: Dexamethasone 20 MG/5 ML VIAL ONE (09:24)
[2022-01-10] MEDS ORDERED: Meperidine HCl/PF 25 MG/ML VIAL SLOW IVP PRN (10:25)
[2022-01-10] MEDS ORDERED: Promethazine HCl 25 MG/ML VIAL IVPB PRN (10:25)
[2022-01-10] MEDS ORDERED: HYDROmorphone 2 MG/ML VIAL SLOW IVP PRN (10:25)
[2022-01-10] MEDS: Multivitamin W/ Minerals 1 TAB PO SCH (12:35)
[2022-01-10] MEDS: Rosuvastatin 10 MG TAB PO SCH (12:35)
[2022-01-10] MEDS: Senokot S 8.6-50 MG TAB PO SCH ×2 (12:35→19:30)
[2022-01-10] MEDS: Amlodipine 5 MG TAB PO SCH (12:35)
[2022-01-10] MEDS: Aspirin 81 mg Enteric Coated Tablet PO SCH ×2 (12:35→20:22)
[2022-01-10] MEDS: Sodium Chloride 0.9% 1,000 ML IV SCH ×2 (12:35→18:34)
[2022-01-10] MEDS: Ferrous Gluconate 324 MG TAB PO SCH ×2 (12:35→19:30)
[2022-01-10] MEDS ORDERED: HYDROcodone/Acetaminophen 5/325 mg Tablet PO PRN ×2 (13:19)
[2022-01-10] MEDS: CEFAZOLIN 2 GM in Sodium Chloride 0.9% 100 ML IVPB SCH ×2 (13:50→22:02)
[2022-01-10] MEDS ORDERED: Fentanyl 100 MCG/2 ML VIAL SLOW IVP PRN ×2 (16:21→16:22)
[2022-01-10] MEDS ORDERED: Fentanyl 100 MCG/2 ML VIAL SLOW IVP SCH (17:15)
[2022-01-10] MEDS ORDERED: diphenhydrAMINE 50 MG/ML VIAL IVP PRN (17:57)
[2022-01-10] MEDS ORDERED: fentaNYL Citrate/PF 2,000 MCG in Sodium Chloride 0.9% 60 ML IV PRN (17:57)
[2022-01-10] MEDS ORDERED: Naloxone HCl 0.4 mg/ml Vial IV PRN (17:57)
[2022-01-10] MEDS ORDERED: diphenhydrAMINE 50 MG/ML VIAL IM PRN (17:57)
[2022-01-10] MEDS ORDERED: Acetaminophen 500 MG TAB PO SCH (18:00)
[2022-01-10] MEDS ORDERED: Communication Order-Pharmacy FS SCH (18:00)
[2022-01-10 18:55] LABS: Anion Gap 16 mmol/L (10-20); BUN (Urea Nitrogen) 13 mg/dL (8.4-25.7); Calc. Creatinine Clearance 79 mL/min (70-130); Calcium 9.1 mg/dL (7.8-10.44); Carbon Dioxide 25 mmol/L (23-31); Chloride 103 mmol/L (98-107); Estimated GFR 66; Glucose 121 mg/dL (80-115); Potassium 4.2 mmol/L (3.5-5.1); Sodium 140 mmol/L (136-145)
[2022-01-10] MEDS: Acetaminophen 325 MG TAB PO SCH (19:57)
[2022-01-10] MEDS: Nebivolol HCl 5 MG TAB PO SCH (20:22)
[2022-01-10] MEDS ORDERED: Non-Formulary Item 1 EACH (Omeprazole [Omeprazole] 20 MG Capsule.Dr) PO SCH (21:00)
[2022-01-10] MEDS: Ondansetron PF 4 MG/2 ML Vial IVP PRN (22:39)
[2022-01-11] MEDS: Sodium Chloride 0.9% 1,000 ML IV SCH ×4 (04:27→23:56)
[2022-01-11 05:35] LABS: Mean Corpuscular Hemoglobin 31.9 pg (27.0-31.0); Mean Platelet Volume 8.2 fL (7.4-10.4); Platelet Count 169 thou/uL (130-400); RBC Distribution Width 13.3 % (11.5-14.5); Red Blood Cell (RBC) Count 4.69 mill/uL (4.70-6.10); White Blood Cell (WBC) Count 11.6 thou/uL (4.8-10.8)
[2022-01-11] MEDS: Ondansetron PF 4 MG/2 ML Vial IVP PRN ×2 (06:13→14:47)
[2022-01-11] MEDS: Acetaminophen 325 MG TAB PO SCH ×5 (06:17→23:09)
[2022-01-11] MEDS: Senokot S 8.6-50 MG TAB PO SCH ×2 (09:53→20:53)
[2022-01-11] MEDS: Rosuvastatin 10 MG TAB PO SCH (09:53)
[2022-01-11] MEDS: Ferrous Gluconate 324 MG TAB PO SCH ×2 (09:54→20:53)
[2022-01-11] MEDS: Amlodipine 5 MG TAB PO SCH (09:54)
[2022-01-11] MEDS: Multivitamin W/ Minerals 1 TAB PO SCH (09:54)
[2022-01-11] MEDS: Aspirin 81 mg Enteric Coated Tablet PO SCH (09:55)
[2022-01-11] MEDS: Cyclobenzaprine 10 MG TAB PO PRN ×2 (12:41→20:55)
[2022-01-11] MEDS: Nebivolol HCl 5 MG TAB PO SCH (20:53)
[2022-01-12] MEDS: Acetaminophen 325 MG TAB PO SCH (05:35)
[2022-01-12 06:26] LABS: Hemoglobin 14.8 g/dL (14.0-18.0); Mean Corpuscular HGB CONC 33.2 g/dL (32.0-36.0); Mean Corpuscular Hemoglobin 31.8 pg (27.0-31.0); Mean Corpuscular Volume 95.8 fL (78.0-98.0); Mean Platelet Volume 8.6 fL (7.4-10.4); Platelet Count 169 thou/uL (130-400); RBC Distribution Width 13.5 % (11.5-14.5); Red Blood Cell (RBC) Count 4.67 mill/uL (4.70-6.10); White Blood Cell (WBC) Count 10.7 thou/uL (4.8-10.8)
[2022-01-12 08:33] VITALS: BP 121/74; TEMP 98.5
[2022-01-12] MEDS: Multivitamin W/ Minerals 1 TAB PO SCH (08:37)
[2022-01-12] MEDS: Ferrous Gluconate 324 MG TAB PO SCH (08:37)
[2022-01-12] MEDS: Aspirin 81 mg Enteric Coated Tablet PO SCH (08:37)
[2022-01-12] MEDS: Cyclobenzaprine 10 MG TAB PO PRN (08:37)
[2022-01-12] MEDS: Senokot S 8.6-50 MG TAB PO SCH (08:38)
[2022-01-12] MEDS: Amlodipine 5 MG TAB PO SCH (08:38)
[2022-01-12] MEDS: Rosuvastatin 10 MG TAB PO SCH (08:38)
== END 2022-01-12 10:25 | disposition home or self-care (01) | DRG 470 ==
LOC: SDC 06:37 → SJJU 12:18 → OBSVTOIN 01-12 06:56
PROVIDERS: ADMIT Orthopaedic Surgery; ATTEND Orthopaedic Surgery
PROC: 0SRB03Z Replacement of Left Hip Joint with Ceramic Synthetic Substitute, Open Approach (ICD-10-PCS; principal; 2022-01-10)
DX: M87.052 Idiopathic aseptic necrosis of left femur (principal); Z20.822 Contact with and (suspected) exposure to COVID-19; K21.9 Gastro-esophageal reflux disease without esophagitis; J45.909 Unspecified asthma, uncomplicated; N18.30 Chronic kidney disease, stage 3 unspecified; I48.91 Unspecified atrial fibrillation; I12.9 Hypertensive chronic kidney disease with stage 1 through stage 4 chronic kidney disease, or unspecified chronic kidney disease; I08.1 Rheumatic disorders of both mitral and tricuspid valves; Z82.49 Family history of ischemic heart disease and other diseases of the circulatory system; Z80.9 Family history of malignant neoplasm, unspecified; Z88.8 Allergy status to other drugs, medicaments and biological substances; Z85.528 Personal history of other malignant neoplasm of kidney; Z79.01 Long term (current) use of anticoagulants; Z88.5 Allergy status to narcotic agent; Z87.442 Personal history of urinary calculi; Z82.3 Family history of stroke; Z87.891 Personal history of nicotine dependence; Z79.899 Other long term (current) drug therapy; Z88.1 Allergy status to other antibiotic agents
CPT/HCPCS: 36415; 80048; 85027; 96365; 96366; 96375; 96376; C1776; G0378; J0690; J1100; J1580; J2250; J2370; J2405; J2550; J2704; J3010; J3370; J3490; J7050; S0020

== ENCOUNTER 2022-05-29 08:21 | Outpatient (CLI) | payer BC ==
[2022-05-29] MEDS ORDERED: Iopamidol 370 76% 100 ML VIAL ONE (08:49)
== END 2022-05-29 08:22 | disposition home or self-care (01) ==
LOC: NM 08:21
PROVIDERS: ATTEND Internal Medicine Hematology & Oncology
DX: C78.00 Secondary malignant neoplasm of unspecified lung (principal); C64.1 Malignant neoplasm of right kidney, except renal pelvis; D70.8 Other neutropenia
CPT/HCPCS: 71260; 74177; 78306; 82565; A9503; Q9967

== ENCOUNTER 2022-08-15 12:57 | Emergency (ER) | payer MEDICARE, BC ==
[2022-08-15] MEDS ORDERED: Lidocaine 1% w/Epinephrine 1:100K 20 ML VIAL ONE (13:11)
== END 2022-08-15 14:50 | disposition home or self-care (01) ==
LOC: ERS 12:57
DX: S61.011A Laceration without foreign body of right thumb without damage to nail, initial encounter (principal); I10 Essential (primary) hypertension; W26.8XXA Contact with other sharp object(s), not elsewhere classified, initial encounter; Y92.009 Unspecified place in unspecified non-institutional (private) residence as the place of occurrence of the external cause; Z85.528 Personal history of other malignant neoplasm of kidney; Z85.118 Personal history of other malignant neoplasm of bronchus and lung
CPT/HCPCS: 12002

== ENCOUNTER 2022-10-03 07:38 | Outpatient (CLI) | payer BC ==
[2022-10-03] MEDS ORDERED: Iopamidol 370 76% 100 ML VIAL ONE (09:39)
== END 2022-10-03 07:39 | disposition home or self-care (01) ==
LOC: NM 07:38
PROVIDERS: ATTEND Internal Medicine Hematology & Oncology
DX: C64.1 Malignant neoplasm of right kidney, except renal pelvis (principal); D75.1 Secondary polycythemia; C78.00 Secondary malignant neoplasm of unspecified lung; R91.1 Solitary pulmonary nodule; K76.0 Fatty (change of) liver, not elsewhere classified; N20.0 Calculus of kidney; J90 Pleural effusion, not elsewhere classified; D70.8 Other neutropenia; Z90.5 Acquired absence of kidney
CPT/HCPCS: 71260; 74177; 78306; 82565; A9503; Q9967

== ENCOUNTER 2022-11-30 10:56 | Emergency (ER) | payer MEDICARE, BC ==
[2022-11-30] MEDS ORDERED: Adenosine 6 MG/2 ML VIAL ONE (11:13)
[2022-11-30 11:20] LABS: #Basophils 0.1 thou/uL (0.0-0.2); #Eosinphils 0.5 thou/uL (0.0-0.7); #Monocytes 0.9 thou/uL (0.11-0.59); #Neutrophils 4.1 thou/uL (1.40-6.50); %Basophils 0.8 % (0.0-1.0); %Eosinophils 6.6 % (0.0-10.0); %Lymphocytes 23.9 % (21.0-51.0); %Monocytes 11.7 % (0.0-10.0); %Neutrophils 56.7 % (42.0-75.0); Hemoglobin 19.9 g/dL (14.0-18.0); Mean Corpuscular HGB CONC 33.9 g/dL (32.0-36.0); Mean Corpuscular Hemoglobin 30.7 pg (27.0-31.0); Mean Corpuscular Volume 90.6 fl (78.0-98.0); Mean Platelet Volume 10.2 fL (7.4-10.4); Platelet Count 205 10x3/uL (130-400); RBC Distribution Width 14.2 % (11.5-14.5); Red Blood Cell (RBC) Count 6.48 mill/uL (4.70-6.10); White Blood Cell (WBC) Count 7.3 10x3/uL (4.8-10.8)
[2022-11-30] MEDS ORDERED: Diltiazem 125 MG/25 ML SDV ONE (11:25)
[2022-11-30 11:39] LABS: Prothrombin Time 13.3 sec (12.0-14.7)
[2022-11-30 11:40] LABS: PTT 25.8 sec (22.9-36.1)
[2022-11-30] MEDS ORDERED: Aspirin 81 mg Enteric Coated Tablet ONE (11:42)
[2022-11-30 11:44] LABS: ALT (SGPT) 14 U/L (8-55); AST (SGOT) 19 U/L (5-34); Albumin 4.3 g/dL (3.4-4.8); Alkaline Phosphatase 75 U/L (40-110); Anion Gap 16 mmol/L (10-20); BUN (Urea Nitrogen) 15 mg/dL (8.4-25.7); Bilirubin, Total 1.1 mg/dL (0.2-1.2); Calc. Creatinine Clearance 0 mL/min (70-130); Calcium 10.2 mg/dL (7.8-10.44); Carbon Dioxide 21 mmol/L (23-31); Chloride 106 mmol/L (98-107); Estimated GFR 50; Globulin 3.1 g/dL (2.4-3.5); Glucose 132 mg/dL (80-115); Magnesium 1.9 mg/dL (1.6-2.6); Protein, Total 7.4 g/dL (5.8-8.1); Sodium 139 mmol/L (136-145)
== END 2022-11-30 13:03 | disposition home or self-care (01) ==
LOC: ERS 10:56
DX: I48.92 Unspecified atrial flutter (principal)
CPT/HCPCS: 71045; 80053; 83735; 83880; 84484; 85025; 85610; 85730; 93005; 94760; 96365; 96372; 96375; 96376; J0153; J1650

== ENCOUNTER 2023-01-12 08:42 | Outpatient (CLI) | payer BC | END 2023-01-12 08:43 | disposition home or self-care (01) | LOC: CT 08:42 | PROVIDERS: ATTEND Internal Medicine Critical Care Medicine | DX: J18.9 Pneumonia, unspecified organism (principal); K76.0 Fatty (change of) liver, not elsewhere classified; M89.9 Disorder of bone, unspecified; Q25.47 Right aortic arch; R91.8 Other nonspecific abnormal finding of lung field; Z95.828 Presence of other vascular implants and grafts | CPT/HCPCS: 71250 ==

== ENCOUNTER 2023-02-08 09:01 | Outpatient (CLI) | payer BC | END 2023-02-08 09:02 | disposition home or self-care (01) | LOC: CT 09:01 | PROVIDERS: ATTEND Internal Medicine Critical Care Medicine | DX: J18.9 Pneumonia, unspecified organism (principal) | CPT/HCPCS: 71250 ==

== ENCOUNTER 2023-03-30 08:05 | Outpatient (CLI) | payer BC | END 2023-03-30 08:06 | disposition home or self-care (01) | LOC: CT 08:05 | PROVIDERS: ATTEND Internal Medicine Hematology & Oncology | DX: C64.1 Malignant neoplasm of right kidney, except renal pelvis (principal); D75.1 Secondary polycythemia; R91.1 Solitary pulmonary nodule; N20.0 Calculus of kidney; K76.0 Fatty (change of) liver, not elsewhere classified; Z90.5 Acquired absence of kidney | CPT/HCPCS: 70470; 71260; 74177; 78306; 82565; A9503 ==

== ENCOUNTER 2024-02-13 07:38 | Outpatient (CLI) | payer BC | END 2024-02-13 07:39 | disposition home or self-care (01) | LOC: CT 07:38 | PROVIDERS: ATTEND Internal Medicine Hematology & Oncology | DX: C64.1 Malignant neoplasm of right kidney, except renal pelvis (principal); R91.1 Solitary pulmonary nodule | CPT/HCPCS: 71250 ==

== ENCOUNTER 2024-07-02 07:57 | Outpatient (CLI) | payer BC, MEDICARE ==
[2024-07-02] MEDS ORDERED: Iopamidol 370 76% 100 ML VIAL ONE (09:37)
== END 2024-07-02 07:58 | disposition home or self-care (01) ==
LOC: CT 07:57
PROVIDERS: ATTEND Internal Medicine Hematology & Oncology
DX: C64.1 Malignant neoplasm of right kidney, except renal pelvis (principal); D75.1 Secondary polycythemia; D70.8 Other neutropenia; C78.00 Secondary malignant neoplasm of unspecified lung
CPT/HCPCS: 71260; 74177; 78306; 82565; A9503; Q9967

== ENCOUNTER 2025-02-12 09:24 | Outpatient (CLI) | payer BC ==
[2025-02-12] MEDS ORDERED: Iopamidol 370 76% 100 ML VIAL ONE (13:52)
== END 2025-02-12 09:25 | disposition home or self-care (01) ==
LOC: CT 09:24
PROVIDERS: ATTEND Internal Medicine Hematology & Oncology
DX: D70.8 Other neutropenia (principal); C64.1 Malignant neoplasm of right kidney, except renal pelvis; D75.1 Secondary polycythemia; R91.8 Other nonspecific abnormal finding of lung field; K76.89 Other specified diseases of liver; C79.51 Secondary malignant neoplasm of bone; J94.8 Other specified pleural conditions; I70.90 Unspecified atherosclerosis; K76.0 Fatty (change of) liver, not elsewhere classified; E89.6 Postprocedural adrenocortical (-medullary) hypofunction; N20.0 Calculus of kidney; N32.89 Other specified disorders of bladder; K61.0 Anal abscess; M47.819 Spondylosis without myelopathy or radiculopathy, site unspecified; Z90.5 Acquired absence of kidney; Z96.643 Presence of artificial hip joint, bilateral; Z90.49 Acquired absence of other specified parts of digestive tract; Z98.890 Other specified postprocedural states
CPT/HCPCS: 70553; 71260; 74177; 76376; Q9967

== ENCOUNTER 2025-02-23 09:40 | Outpatient (CLI) | payer BC | END 2025-02-23 09:41 | disposition home or self-care (01) | LOC: SJX 09:40 | PROVIDERS: ATTEND Internal Medicine Hematology & Oncology | DX: C64.1 Malignant neoplasm of right kidney, except renal pelvis (principal); D75.1 Secondary polycythemia; D70.8 Other neutropenia; R93.2 Abnormal findings on diagnostic imaging of liver and biliary tract | CPT/HCPCS: 74183 ==

== ENCOUNTER 2025-05-11 08:54 | Outpatient (CLI) | payer BC ==
[2025-05-11 09:30] LABS: Estimated GFR - POC 65.0
[2025-05-11] MEDS ORDERED: Iopamidol 370 76% 100 ML VIAL ONE (13:09)
== END 2025-05-11 08:55 | disposition home or self-care (01) ==
LOC: CT 08:54
PROVIDERS: ATTEND Internal Medicine Hematology & Oncology
DX: C64.9 Malignant neoplasm of unspecified kidney, except renal pelvis (principal); D75.1 Secondary polycythemia; D70.8 Other neutropenia; R91.8 Other nonspecific abnormal finding of lung field; M89.9 Disorder of bone, unspecified; I70.90 Unspecified atherosclerosis; E04.1 Nontoxic single thyroid nodule; K76.89 Other specified diseases of liver; N20.0 Calculus of kidney; M85.80 Other specified disorders of bone density and structure, unspecified site; T84.84XA Pain due to internal orthopedic prosthetic devices, implants and grafts, initial encounter; Z90.49 Acquired absence of other specified parts of digestive tract; Z90.5 Acquired absence of kidney; Z98.890 Other specified postprocedural states
CPT/HCPCS: 36415; 71260; 74177; 82565; Q9967